=== PATIENT | female | born 1975 | race African-American/Black ===

== ENCOUNTER 2019-01-19 06:00 | Outpatient (RCR) | payer MEDICARE, SELFPAY | END 2019-02-18 00:01 | LOC: SPT 06:00 | PROVIDERS: Family Provider Nurse Practitioner Family; Visit Provider Specialist | DX: M25.562 Pain in left knee (principal) | CPT/HCPCS: 97110 ×3 ==

== ENCOUNTER → 2019-02-18 | Outpatient (CLI) | payer SELFPAY | PROVIDERS: Family Provider Nurse Practitioner Family; Visit Provider Nurse Practitioner Family | DX: M54.31 Sciatica, right side (principal); M25.551 Pain in right hip | CPT/HCPCS: 73502 ==

== ENCOUNTER 2019-02-19 11:19 | Outpatient (RCR) | payer MEDICARE, SELFPAY | END 2019-03-21 23:59 | disposition home or self-care (01) | LOC: SPT 11:19 | PROVIDERS: Family Provider Nurse Practitioner Family; PCP Family Medicine; Visit Provider Specialist | DX: M25.562 Pain in left knee (principal); R26.89 Other abnormalities of gait and mobility | CPT/HCPCS: 97110 ==

== ENCOUNTER → 2019-03-27 10:56 | Outpatient (BNVA) | payer MEDICARE, SELFPAY | PROVIDERS: Family Provider Nurse Practitioner Family; PCP Family Medicine; Visit Provider Nurse Practitioner Psychiatric/Mental Health | DX: F25.0 Schizoaffective disorder, bipolar type (principal) | CPT/HCPCS: 99213 ==

== ENCOUNTER → 2019-05-26 08:17 | Outpatient (BNVA) | payer MEDICARE, MEDICAID, SELFPAY | PROVIDERS: Family Provider Nurse Practitioner Family; PCP Family Medicine; Visit Provider Nurse Practitioner Psychiatric/Mental Health | DX: F25.0 Schizoaffective disorder, bipolar type (principal) | CPT/HCPCS: 99213 ==

== ENCOUNTER → 2019-07-07 07:58 | Outpatient (BNVA) | payer MEDICARE, MEDICAID, SELFPAY | PROVIDERS: Family Provider Nurse Practitioner Family; PCP Family Medicine; Visit Provider Nurse Practitioner Psychiatric/Mental Health | DX: F25.0 Schizoaffective disorder, bipolar type (principal) | CPT/HCPCS: 99212 ==

== ENCOUNTER 2019-09-26 06:46 | Emergency (ER) | payer MEDICARE, MEDICAID, SELFPAY ==
[2019-09-26 06:52] VITALS: BP 135/95; PULSE 93; RESP 18; TEMP 36.7; O2SAT 99; BMI 41.5
--- NOTE | 2019-09-26 06:54 | ED_ITS ---
HPI - URI/Sore Throat General: Chief Complaint: General Medical Stated Complaint: COUGHING UP FLUID, CAN'T SLEEP Time Seen by Provider: 09/26/19 06:50 Source: patient Mode of arrival: ambulatory Limitations: no limitations History of Present Illness: HPI Narrative: Patient is a 44-year-old female presents to ED today with complaints of a productive cough that she has had over the past 5 to 6 days. Patient tells me the cough seems to keep her up at night however patient also tells me she has been drinking lots of water to try to help break up the phlegm so often is awaking to urinate. Patient is not having any pain in her chest. She does not complain of any shortness of breath or difficulty breathing. She has not had any fevers. She reports her throat is a little sore from coughing. She does not have any sinus pain, rhinorrhea, congestion, ear pain. She has not had any sick contacts or exposure to someone with confirmed or presumed COVID. Patient tells me she has a history of asthma that she uses a Pro-air inhaler for. MD elicited complaint: cough Onset (ago): day(s) Description of mucous: clear Able to tolerate fluids by mouth: Yes Exacerbating factors: nothing Relieving factors: nothing Associated symptoms: Deny abdominal pain, chills, chest pain, diarrhea, ear or mastoid pain, fever(s), headache(s), nasal congestion, nausea or vomiting Review of Systems Const: Denies: fever(s), chills, body aches, fatigue or malaise Eyes: Denies: change in vision or blurry vision ENMT: Reports: throat pain; Denies: uvular edema, enlarged tonsils, ear or mastoid pain, nasal discharge or nasal congestion Card: Denies: chest pain, palpitations, edema, lightheadedness, syncope, pre- syncope, dyspnea on exertion or orthopnea Resp: Reports: productive cough and chest congestion; Denies: dyspnea, wheezing or hemoptysis GI: Denies: abdominal pain, nausea, vomiting or diarrhea Musc: Denies: neck pain or back pain Skin/Breast: Denies: rash Neuro: Denies: headache(s) [facility] ED PFSH: Medical History (Updated 09/26/19 @ 08:42 by TASIA Christianson) Schizoaffective disorder, bipolar type Social History (Updated 03/27/19 @ 11:16 by Hellen Robertson LPN) Smoking and tobacco status: current every day smoker cigarettes Years cigarettes smoked: 30 Quit status (tobacco): considering quitting Second hand smoke exposure: Yes Physical Exam Const: COMMON NORMALS: no acute distress, patient oriented x3, no limitations and alert NUTRITIONAL APPEARANCE: obese HENMT: COMMON NORMALS: normocephalic, atraumatic, hearing grossly normal bilaterally, external ears normal, EAC's normal, TM's normal bilaterally, Normal external nose present, Normal nasal mucous membranes and turbinates present, m oist oral mucous membranes and oropharynx normal HEAD & SCALP: normal to inspection, normocephalic and atraumatic FACE & SINUS: normal facial exam and sinuses nontender NOSE: Normal external nose present and Normal nasal mucous membranes and turbinates present EXTERNAL EAR: Yes external ears normal EXTERNAL AUDITORY CANAL: EAC's normal TYMPANIC MEMBRANE: TM's normal bilaterally MOUTH: Normal oral and palatal mucosa present, lip normal and tongue normal THROAT: posterior oropharynx normal, tonsils normal and uvula midline; no uvular edema Eye: GENERAL EYE: appearance normal, both eyes and all related structures Neck/C-Spine: COMMON NORMALS: full ROM, no lymphadenopathy and no meningeal signs Chest: COMMONS NORMALS: normal inspection of the chest and normal palpation of entire chest wall Resp: COMMON NORMALS: normal respiratory effort and clear to auscultation bilaterally AUSCULTATION: clear to auscultation bilaterally Cardio: COMMON NORMALS: regular rate and regular rhythm RATE: regular rate RHYTHM: regular rhythm Neuro: COMMON NORMALS: patient oriented x3 SENSORIUM/ORIENTATION: Yes alert MENINGEAL SIGNS: Yes no meningeal signs Skin: COMMON NORMALS: no rashes or lesions noted GENERAL SKIN EXAM: no rashes or lesions noted Course Vital Signs: Vital signs: Vital Signs Temperature 98.0 F 09/26/19 06:52 Pulse Rate 84 09/26/19 08:50 Respiratory Rate 18 09/26/19 08:50 Blood Pressure 129/84 09/26/19 08:50 Pulse Oximetry 100 09/26/19 08:50 MDM - URI/Sore Throat MDM Narrative: Medical decision making narrative: Initial CXR interpreted by myself and Dr. Cotter-questionable effusion so lateral decub was performed. I do not see any effusion at this time. Will treat for possible early pneumonia and recommend followup with PCP. Labs overall look okay-she has some chronic microcytic microchromic anemia present. Vitals are stable. Lab Data: Labs: Lab Results 09/26/19 09/26/19 Range/Units 08:01 08:01 WBC 14.3 H (4.0-10.0) 10^3/ uL RBC 5.29 (4.1-5.3) 10^6/u L Hgb 10.4 L (11.5-15.3) g/dL Hct 35.8 L (37.0-47.0) % MCV 67.7 L (81-99) fL MCH 19.7 L (28.0-34.0) pg MCHC 29.1 L (30.0-36.0) g/dL RDW 16.7 H (12.1-15.1) % Plt Count 369 (130-400) 10^3/c mm MPV 11.2 H (7.4-10.4) fL Neut % (Auto) 66.8 % Lymph % (Auto) 24.1 % [place] % (Auto) 7.5 % Eos % (Auto) 1.0 % Baso % (Auto) 0.3 % Neut # (Auto) 9.53 H (1.8-7.7) 10^3/u L Lymph # (Auto) 3.5 (0.8-4.8) 10^3/u L [place] # (Auto) 1.1 H (0.2-0.9) 10^3/u L Eos # (Auto) 0.2 (0.0-0.8) 10^3/u L Baso # (Auto) 0.0 (0.0-0.1) 10^3/u L Nucleated RBC % (a uto) 0 % Nucleated RBCs # 0.0 /100WBC Sodium 138 (136-145) mmol/L Potassium 3.6 (3.5-5.1) mmol/L Chloride 103 (98-107) mmol/L Carbon Dioxide 23 (22-29) mmol/L Anion Gap 15.6 (5-19) BUN 4 L (6-20) mg/dL Creatinine 0.8 (0.5-0.9) mg/dL GFR Calculation 78.3 L (90-130) mL/min Glucose 102 (65-115) mg/dL Calculated Osmolal ity 282 L (285-295) mOsm/k g Calcium 9.0 (8.5-10.5) mg/dL Total Bilirubin 0.3 (0.15-1.2) mg/dL AST 13 (0-32) U/L ALT 12 (0-33) U/L Alkaline Phosphata se 73 (35-105) IU/L Total Protein 8.8 H (6.6-8.7) g/dL Albumin 4.2 (3.5-5.2) g/dL Globulin 4.6 (1.3-4.6) g/dL Imaging Data^: CXR: Radiologist's impression: [place] [address] XRay Report Signed Patient: Vijay Galindo Unit #: [id number] : 1975 Age/Sex: 44 / F ADM Date: 09/26/19 Loc: ER Room/Bed: Attending Dr: Ordering Provider/Ordering MD: Katelynn Encarnacion Date of Service: 09/26/19 Procedure(s): XR chest 1V portable [id number] Accession Number(s): [id number] Report Number: [id number] WS: [id number] PORTABLE CHEST HISTORY: lateral decub; possible R effusion COMPARISON: Study earlier the same day. Partial obscuration of the RIGHT lower lobe continues and may be due to overlying soft tissue. There is no significant effusion. No pleural effusion or pneumothorax. Cardiac size: Normal. Mediastinum/Aorta: Normal mediastinum. No osseous abnormality seen. XR/XR chest 1V portable [id number] IMPRESSION: No significant layering RIGHT pleural effusion. Dictated By: Janene Chirinos DO Signed By: Janene Chirinos DO Signed Date/Time: 09/26/19817 DD/ 6 portable CXR: Radiologist's impression: [place] [id number] XRay Report Signed Patient: Vijay GalindoUnit #: [id number] : 1975Acct#:[id number] Age/Sex: 44 / FADM Date: 09/26/19 Loc: ERRoom/Bed: Attending Dr: Ordering Provider/Ordering MD: Katelynn Encarnacion Date of Service: 09/26/19 Procedure(s): XR chest 1V portable [id number] Accession Number(s): [id number] Report Number: [id number] WS: [id number] PORTABLE CHEST HISTORY: chest pain COMPARISON: None available. Slight elevation of the RIGHT hemidiaphragm. There some very mild increased opacification at the RIGHT lung base which is probably due to overlying soft tissue or very mild pneumonitis. No pleural effusion or pneumothorax. Cardiac size: Normal. Mediastinum/Aorta: Normal mediastinum. No osseous abnormality seen. XR/XR chest 1V portable [id number] IMPRESSION: Mild elevation of the RIGHT hemidiaphragm with minimal increased density at the RIGHT lung base. Early pneumonia or pneumonitis. Dictated By:Janene Chirinos DO Signed By:Janene Chirinos DOSigned Date/Time:09/26/19818 DD/ 8 Discharge Plan Discharge Patient Disposition: Home Clinical Impression: Pneumonia Qualifiers: Pneumonia type: due to unspecified organism Laterality: right Lung location: lower lobe of lung Qualified Code(s): J18.9 - Pneumonia, unspecified organism Condition: Stable Prescriptions: New doxycycline monohydrate 100 mg capsule 100 mg PO Q12H 10 Days Qty: 20 RF: 0 No Action hydrocodone-acetaminophen 5-325 mg tablet 1 tab PO TID PRN (Reason: pain) RF: 0 metformin 500 mg tablet 500 mg PO DAILY RF: 0 olanzapine 5 mg tablet 5 mg PO BID Qty: 60 RF: 2 trazodone 100 mg tablet 200 mg PO DAILY PRN (Reason: insomnia) Qty: 60 RF: 2 buspirone 10 mg tablet 10 mg PO BID Qty: 60 RF: 2 aspirin 81 mg tablet,delayed release (DR/EC) 81 mg PO DAILY RF: 0 Discharge Orders: Discharge Order (Routine); Ordered 09/26/19 Ordered By: Katelynn Encarnacion Referrals: Meka Wayne DO [Primary Care Provider] - Patient Instructions: Pneumonia (ED) Activity Restrictions/Additional Instructions: Please follow-up with your primary care provider in 3 to 5 days for reevaluation. You may return to the emergency department for worsening cough, chest pain, shortness of breath, difficulty breathing, fevers, any other concerns you may have. Discharge Date/Time: 09/26/19 08:51 Coding Level of Care Code ED Acute Care Surgeon for Chg Fwd Exam Comprehensive
--- NOTE | 2019-09-26 07:05 | XR_ITS ---
WS: [id number] PORTABLE CHEST HISTORY: chest pain COMPARISON: None available. Slight elevation of the RIGHT hemidiaphragm. There some very mild increased opacification at the RIGH T lung base which is probably due to overlying soft tissue or very mild pneumonitis. No pleural effus ion or pneumothorax. Cardiac size: Normal. Mediastinum/Aorta: Normal mediastinum. No osseous abnormality seen. XR/XR chest 1V portable [id number] IMPRESSION: Mild elevation of the RIGHT hemidiaphragm with minimal increased density at the RIGHT lung base. Early pneumonia or pneumonitis.
--- NOTE | 2019-09-26 07:37 | XR_ITS ---
WS: [id number] PORTABLE CHEST HISTORY: lateral decub; possible R effusion COMPARISON: Study earlier the same day. Partial obscuration of the RIGHT lower lobe continues and may be due to overlying soft tissue. There is no significant effusion. No pleural effusion or pneumothorax. Cardiac size: Normal. Mediastinum/Aorta: Normal mediastinum. No osseous abnormality seen. XR/XR chest 1V portable [id number] IMPRESSION: No significant layering RIGHT pleural effusion.
[2019-09-26 08:07] LABS: Basophils % 0.3 %; Eosinophils # 0.2 10^3/uL (0.0-0.8); Hematocrit 35.8 % (37.0-47.0); Hemoglobin 10.4 g/dL (11.5-15.3); Lymphocytes # 3.5 10^3/uL (0.8-4.8); Lymphocytes % 24.1 %; Mean Corpuscular HGB Conc 29.1 g/dL (30.0-36.0); Mean Corpuscular Hemoglobin 19.7 pg (28.0-34.0); Mean Corpuscular Volume 67.7 fL (81-99); Mean Platelet Volume 11.2 fL (7.4-10.4); Monocytes # 1.1 10^3/uL (0.2-0.9); Monocytes % 7.5 %; Neutrophils # 9.53 10^3/uL (1.8-7.7); Neutrophils % 66.8 %; Nucleated Red Blood Cells % 0 %; Platelet Count 369 10^3/cmm (130-400); Red Blood Count 5.29 10^6/uL (4.1-5.3); Red Cell Distribution Width 16.7 % (12.1-15.1); White Blood Count 14.3 10^3/uL (4.0-10.0)
[2019-09-26 08:39] LABS: Alanine Aminotransferase 12 U/L (0-33); Albumin Level 4.2 g/dL (3.5-5.2); Alkaline Phosphatase 73 IU/L (35-105); Anion Gap 15.6 (5-19); Aspartate Amino Transferase 13 U/L (0-32); Blood Urea Nitrogen 4 mg/dL (6-20); Carbon Dioxide 23 mmol/L (22-29); Chloride 103 mmol/L (98-107); Globulin 4.6 g/dL (1.3-4.6); Glomerular Filtration Rate 78.3 mL/min (90-130); Glucose 102 mg/dL (65-115); Osmolality Calculated 282 mOsm/kg (285-295); Potassium 3.6 mmol/L (3.5-5.1); Sodium 138 mmol/L (136-145); Total Bilirubin 0.3 mg/dL (0.15-1.2); Total Protein 8.8 g/dL (6.6-8.7)
[2019-09-26 08:47] VITALS: BP 129/84; PULSE 84; RESP 20; O2SAT 100
[2019-09-26 08:50] VITALS: BP 129/84; PULSE 84; RESP 18; O2SAT 100
== END 2019-09-26 08:51 | disposition home or self-care (01) ==
PROVIDERS: Emergency Provider Physician Assistant; PCP Family Medicine
DX: J18.9 Pneumonia, unspecified organism (principal); Z79.82 Long term (current) use of aspirin; F17.210 Nicotine dependence, cigarettes, uncomplicated
CPT/HCPCS: 12345; 71045; 80053; 85025; 99281; 99283

== ENCOUNTER → 2019-09-29 09:04 | Outpatient (BNVA) | payer MEDICARE, SELFPAY | PROVIDERS: PCP Family Medicine; Visit Provider Nurse Practitioner Psychiatric/Mental Health | DX: F25.0 Schizoaffective disorder, bipolar type (principal) | CPT/HCPCS: 99212 ==

== ENCOUNTER → 2019-12-22 07:44 | Outpatient (BNVA) | payer MEDICARE, SELFPAY | PROVIDERS: PCP Family Medicine; Visit Provider Nurse Practitioner Psychiatric/Mental Health | DX: F25.0 Schizoaffective disorder, bipolar type (principal) | CPT/HCPCS: 99212 ==

== ENCOUNTER → 2020-03-22 09:31 | Outpatient (BNVA) | payer MEDICARE, SELFPAY | PROVIDERS: PCP Family Medicine; Visit Provider Nurse Practitioner Psychiatric/Mental Health | DX: F25.0 Schizoaffective disorder, bipolar type (principal); Z79.899 Other long term (current) drug therapy | CPT/HCPCS: 99213 ==

== ENCOUNTER 2020-03-24 05:47 | Emergency (ER) | payer MEDICARE, MEDICAID, SELFPAY ==
[2020-03-24] VITALS (7 sets, daily range): BP systolic 117–145; BP diastolic 75–101; PULSE 73–100; RESP 14–25; TEMP 36.6; O2SAT 94–100; BMI 43.2
--- NOTE | 2020-03-24 05:48 | ECG_ITS ---
[facility] Test Date: 2020-03-24 Pat Name: Vijay Galindo Department: Room: Gender: Female Project Coach: : 1975 Requested By: Veronika Rico Order Number: [id number] Linda MD: Michael Rodríguez M.D. Measurements Intervals [place] Rate: 79 P: 40 IL: 109 QRS: 30 QRSD: 92 T: 18 QT: 373 QTc: 428 Interpretive Statements SINUS RHYTHM WITH SHORT IL INTERVAL WITH OCCASIONAL SUPRAVENTRICULAR PREMATURE COMPLEXES No previous ECG available for comparison Electronically Signed On 03-24-2020 20:04:21 SENIOR TECHNICAL EDITOR by Michael Rodríguez M.D. [email or web address] [email or web address]/store/[id number]
--- NOTE | 2020-03-24 05:48 | XR_ITS ---
WS: [id number] PORTABLE CHEST HISTORY: Left-sided chest pain. COMPARISON: 09/26/2019 Decreased lung volumes. Quality is limited by body habitus and positioning. No abnormality identified . No pleural effusion or pneumothorax. Cardiac size: Normal. Mediastinum/Aorta: Normal mediastinum. No osseous abnormality seen. XR/XR chest 1V portable [id number] IMPRESSION: Unremarkable portable chest.
[2020-03-24 06:18] LABS: Basophils # 0.1 10^3/uL (0.0-0.1); Basophils % 0.4 %; Eosinophils # 0.3 10^3/uL (0.0-0.8); Eosinophils % 2.3 %; Hematocrit 31.3 % (37.0-47.0); Hemoglobin 9.1 g/dL (11.5-15.3); Lymphocytes # 3.3 10^3/uL (0.8-4.8); Lymphocytes % 28.3 %; Mean Corpuscular HGB Conc 29.1 g/dL (30.0-36.0); Mean Corpuscular Hemoglobin 20.1 pg (28.0-34.0); Mean Corpuscular Volume 69.2 fL (81-99); Mean Platelet Volume 11.1 fL (7.4-10.4); Neutrophils # 6.87 10^3/uL (1.8-7.7); Neutrophils % 59.7 %; Nucleated Red Blood Cells % 0 %; Platelet Count 336 10^3/cmm (130-400); Red Blood Count 4.52 10^6/uL (4.1-5.3); Red Cell Distribution Width 16.9 % (12.1-15.1); White Blood Count 11.5 10^3/uL (4.0-10.0)
--- NOTE | 2020-03-24 06:26 | W.ED.CHESTPA ---
HPI - Chest Pain General: Chief Complaint: Chest Pain Stated Complaint: CP Time Seen by Provider: 03/24/20 06:03 History of Present Illness: HPI narrative: The patient is a 44-year-old female with past medical history of diabetes who comes to the ER complaining of left-sided chest pain at home. She has not had any chest pain in the ER. She says last night she was cleaning her home around 9 PM and went to bed shortly after. When she laid down she started having pain under her left breast which was worse with movement and ached her all night. At about around 5 AM she called the ER and recommended coming in for evaluation. She says as soon as she hung up the phone her pain resolved and she has not had any since. She has anterior chest wall tenderness over the area where she says her pain was. No prior known coronary artery disease Pain location: left chest Pain radiation: none Quality: sharp Exacerbating factors: movement Associated symptoms: Reports no associated symptoms; Deny abdominal pain, dyspnea or palpitations Review of Systems General: Reports: 10 or more systems reviewed and unremarkable except in HPI and below Const: Denies: fatigue Eyes: Denies: change in vision, blurry vision or eye redness ENMT: Denies: throat pain, swelling of lips/tongue, ear or mastoid pain or nasal congestion Card: Denies: chest pain, palpitations, irregular heart rhythm, edema, dyspnea on exertion or orthopnea Resp: Denies: dyspnea, productive cough or non-productive cough GI: Denies: abdominal pain, diarrhea or GI cramping : Denies: flank pain, difficulty voiding, urinary frequency or urinary urgency Musc: Denies: neck pain, back pain, extremity pain, joint pain, joint redness, limited range of motion or muscle weakness Skin/Breast: Denies: rash, pruritus, erythema, skin pain or skin tenderness Neuro: Denies: headache(s), numbness in extremities, weakness in extremities, sensory changes, difficulty walking, dizziness, confusion or Slurred speech present Psych: Denies: anxiety or depression Endo: Denies: polyuria All/Imm: Denies: urticaria, throat swelling or tongue swelling PFSH ED PFSH: Medical History (Updated 03/24/20 @ 08:15 by Chris Robertson MD) Schizoaffective disorder, bipolar type Social History (Updated 02/06/20 @ 11:16 by KASSY Bailon Smoking and tobacco status: current every day smoker cigarettes Years cigarettes smoked: 30 Quit status (tobacco): considering quitting Second hand smoke exposure: Yes Female Reproductive History: Date of last menstrual period: 09/02/19 Physical Exam Const: COMMON NORMALS: no acute distress, average body habitus, patient oriented x3, no limitations, healthy appearing, alert and well nourished GENERAL APPEARANCE: cooperative, comfortable, well kempt and well developed NUTRITIONAL APPEARANCE: obese ORIENTATION/CONSCIOUSNESS: Yes awake, Yes oriented to person, Yes oriented to place and Yes oriented to time HENMT: COMMON NORMALS: normocephalic, external ears normal and Normal external nose present HEAD & SCALP: normal to inspection and normocephalic NOSE: Normal external nose present EXTERNAL EAR: Yes external ears normal MOUTH: Normal oral and palatal mucosa present THROAT: posterior oropharynx normal Eye: COMMON NORMALS: Equal, round and reactive pupils present and EOMs intact bilaterally GENERAL EYE: appearance normal, both eyes and all related structures PUPIL: Yes Equal, round and reactive pupils present Neck/C-Spine: COMMON NORMALS: full ROM, no lymphadenopathy, no meningeal signs and no JVD GENERAL: Yes normal visual inspection Lymph: LYMPHATIC: no lymphadenopathy noted Chest: COMMONS NORMALS: normal inspection of the chest CHEST: Yes other (Tenderness to left chest wall which reproduces her chief complaint. ) Resp: COMMON NORMALS: normal respiratory effort, No retractions, No use of accessory muscles, clear to auscultation bilaterally and percussion normal EFFORT & INSPECTION: Yes able to speak in complete sentences AUSCULTATION: clear to auscultation bilaterally PERCUSSION: percussion normal Cardio: COMMON NORMALS: no JVD, regular rate, regular rhythm, S1 normal heart sound present, S2 normal heart sound present and Peripheral pulses 2+ throughout RATE: regular rate RHYTHM: regular rhythm HEART SOUNDS: S1 normal heart sound present and S2 normal heart sound present PERIPHERAL PULSES: Peripheral pulses 2+ throughout GI: COMMON NORMALS: Normal to inspection, nondistended, normoactive bowel sounds present, Soft to palpation, non-tender and no masses INSPECTION: Yes normal to inspection PALPATION: Yes Soft to palpation : COMMON NORMALS: Yes no CVA tenderness BLADDER/KIDNEY EXAM: Yes no CVA tenderness Back/Pelvis: COMMON NORMALS: no CVA tenderness, thoracic and lumbar spine normal to inspection, no thoracic nor lumbar tenderness and thoraco-lumbar ROM normal Extremity: COMMON NORMALS: normal to inspection, full ROM, capillary refill normal, no joint enlargement and no pedal edema GENERAL: Yes normal exam except as noted Neuro: COMMON NORMALS: patient oriented x3, CN's II-XII intact bilaterally, moves all extremities, no focal motor deficits, no sensory deficits noted and gait normal SENSORIUM/ORIENTATION: Yes alert, Yes oriented to person, Yes oriented to place and Yes oriented to time MENINGEAL SIGNS: Yes no meningeal signs Psych: COMMON NORMALS: mental status grossly normal, Normal thought process present, cooperative, normal affect and speech normal APPEARANCE: Yes well kempt ATTITUDE: Yes calm SPEECH: Yes normal speech THOUGHT PROCESS: Normal thought process present Skin: COMMON NORMALS: no rashes or lesions noted GENERAL SKIN EXAM: no rashes or lesions noted Course Vital Signs: Vital signs: Vital Signs Temperature 97.9 F 03/24/20 05:51 Pulse Rate 73 03/24/20 08:09 Respiratory Rate 25 H 03/24/20 08:09 Blood Pressure 118/78 03/24/20 08:09 Pulse Oximetry 95 03/24/20 08:09 MDM - Chest Pain MDM Narrative: Medical decision making narrative: Patient comes in with atypical chest pain likely from cleaning her house yesterday. Cardiac work-up is negative. Normal troponin and EKG. D-dimer was elevated. CT angiogram normal. Stable for outpatient follow-up Lab Data: Labs: Lab Results 03/24/20 03/24/20 03/24/20 Range/Units 05:56 05:56 05:56 WBC 11.5 H (4.0-10.0) 10^3/ uL RBC 4.52 (4.1-5.3) 10^6/u L Hgb 9.1 L (11.5-15.3) g/dL Hct 31.3 L (37.0-47.0) % MCV 69.2 L (81-99) fL MCH 20.1 L (28.0-34.0) pg MCHC 29.1 L (30.0-36.0) g/dL RDW 16.9 H (12.1-15.1) % Plt Count 336 (130-400) 10^3/c mm MPV 11.1 H (7.4-10.4) fL Neut % (Auto) 59.7 % Lymph % (Auto) 28.3 % [place] % (Auto) 9.0 % Eos % (Auto) 2.3 % Baso % (Auto) 0.4 % Neut # (Auto) 6.87 (1.8-7.7) 10^3/u L Lymph # (Auto) 3.3 (0.8-4.8) 10^3/u L [place] # (Auto) 1.0 H (0.2-0.9) 10^3/u L Eos # (Auto) 0.3 (0.0-0.8) 10^3/u L Baso # (Auto) 0.1 (0.0-0.1) 10^3/u L Nucleated RBC % (a uto) 0 % Nucleated RBCs # 0.0 /100WBC D-Dimer (0-0.59) ug/mIFE U Sodium 138 (136-145) mmol/L Potassium 4.2 (3.5-5.1) mmol/L Chloride 104 (98-107) mmol/L Carbon Dioxide 27 (22-29) mmol/L Anion Gap 11.2 (5-19) BUN 6 (6-20) mg/dL Creatinine 0.7 (0.5-0.9) mg/dL GFR Calculation 91.3 (90-130) mL/min Glucose 101 (65-115) mg/dL Calculated Osmolal ity 284 L (285-295) mOsm/k g Calcium 8.4 L (8.5-10.5) mg/dL Total Bilirubin 0.2 (0.15-1.2) mg/dL AST 12 (0-32) U/L ALT 10 (0-33) U/L Alkaline Phosphata se 88 (35-105) IU/L Troponin T Baselin e 6 (0-10) ng/L Total Protein 6.8 (6.6-8.7) g/dL Albumin 3.4 L (3.5-5.2) g/dL Globulin 3.4 (1.3-4.6) g/dL 03/24/20 Range/Units 05:56 WBC (4.0-10.0) 10^3/ uL RBC (4.1-5.3) 10^6/u L Hgb (11.5-15.3) g/dL Hct (37.0-47.0) % MCV (81-99) fL MCH (28.0-34.0) pg MCHC (30.0-36.0) g/dL RDW (12.1-15.1) % Plt Count (130-400) 10^3/c mm MPV (7.4-10.4) fL Neut % (Auto) % Lymph % (Auto) % [place] % (Auto) % Eos % (Auto) % Baso % (Auto) % Neut # (Auto) (1.8-7.7) 10^3/u L Lymph # (Auto) (0.8-4.8) 10^3/u L [place] # (Auto) (0.2-0.9) 10^3/u L Eos # (Auto) (0.0-0.8) 10^3/u L Baso # (Auto) (0.0-0.1) 10^3/u L Nucleated RBC % (a uto) % Nucleated RBCs # /100WBC D-Dimer 1.26 H (0-0.59) ug/mIFE U Sodium (136-145) mmol/L Potassium (3.5-5.1) mmol/L Chloride (98-107) mmol/L Carbon Dioxide (22-29) mmol/L Anion Gap (5-19) BUN (6-20) mg/dL Creatinine (0.5-0.9) mg/dL GFR Calculation (90-130) mL/min Glucose (65-115) mg/dL Calculated Osmolal ity (285-295) mOsm/k g Calcium (8.5-10.5) mg/dL Total Bilirubin (0.15-1.2) mg/dL AST (0-32) U/L ALT (0-33) U/L Alkaline Phosphata se (35-105) IU/L Troponin T Baselin e (0-10) ng/L Total Protein (6.6-8.7) g/dL Albumin (3.5-5.2) g/dL Globulin (1.3-4.6) g/dL Discharge Plan Discharge Patient Disposition: Home Clinical Impression: Atypical chest pain Condition: Stable Prescriptions: No Action hydrocodone-acetaminophen 5-325 mg tablet 1 tab PO TID PRN (Reason: pain) RF: 0 metformin 500 mg tablet 500 mg PO DAILY RF: 0 aspirin 81 mg tablet,delayed release (DR/EC) 81 mg PO DAILY RF: 0 trazodone 100 mg tablet 200 mg PO DAILY PRN (Reason: insomnia) Qty: 60 RF: 2 olanzapine 5 mg tablet 5 mg PO BID Qty: 60 RF: 2 buspirone 10 mg tablet 10 mg PO BID Qty: 60 RF: 2 Discharge Orders: Discharge ED (Routine); Ordered 03/24/20 Ordered By: Chris Robertson Referrals: Meka Wayne DO [Primary Care Provider] - Discharge Diet: Advance as tolerated Discharge Activity: Resume usual activity Patient Instructions: Chest Pain - Noncardiac Activity Restrictions/Additional Instructions: You have chest pain which is likely the muscles and bones causing this in your chest wall. Please take Tylenol for your pain and return to the ER with worsening symptoms otherwise follow-up with your primary care physician in a few days. Coding Level of Care Code ED Commercial Lines Assistant for Bruce Fwd Exam Comprehensive
[2020-03-24 06:40] LABS: Alanine Aminotransferase 10 U/L (0-33); Albumin Level 3.4 g/dL (3.5-5.2); Alkaline Phosphatase 88 IU/L (35-105); Anion Gap 11.2 (5-19); Aspartate Amino Transferase 12 U/L (0-32); Blood Urea Nitrogen 6 mg/dL (6-20); Calcium 8.4 mg/dL (8.5-10.5); Carbon Dioxide 27 mmol/L (22-29); Chloride 104 mmol/L (98-107); Globulin 3.4 g/dL (1.3-4.6); Glomerular Filtration Rate 91.3 mL/min (90-130); Glucose 101 mg/dL (65-115); Osmolality Calculated 284 mOsm/kg (285-295); Potassium 4.2 mmol/L (3.5-5.1); Sodium 138 mmol/L (136-145); Total Bilirubin 0.2 mg/dL (0.15-1.2); Total Protein 6.8 g/dL (6.6-8.7)
[2020-03-24 06:41] LABS: Troponin(5th) Baseline 6 ng/L (0-10)
[2020-03-24 07:29] LABS: D Dimer 1.26 ug/mIFEU (0-0.59)
--- NOTE | 2020-03-24 07:35 | CT_ITS ---
WS: [id number] CT CHEST ANGIOGRAPHY WITH REFORMATS HISTORY: r/o PE TECHNIQUE: Contiguous axial images are obtained through the chest during arterial injection of intrav enous contrast. Images are reconstructed to evaluate the pulmonary arteries. MIP imaging also reviewe d. All CT scans at [facility] use at least one of these dose optimization techniques: aut omated exposure control; mA and/or kV adjustment per patient size (includes targeted exams where dose is matched to clinical indication); or iterative reconstruction. CONTRAST: Omnipaque 350; 95 mL IV. DLP: 483.19 mGy.cm COMPARISON: None available. Good opacification of the pulmonary arteries. No filling defects or pulmonary emboli. Pulmonary arter y is normal size. Normal aorta. No pneumonia. Normal vasculature. No pleural or pericardial effusions . There is increase fluid in the pericardial recess surrounding the aorta. No mediastinal or hilar ad enopathy. Normal soft tissues of the chest. Upper abdomen is negative. Mild thoracic spondylosis. Numerous heal ed rib fractures in the RIGHT thorax. CT/CT angio chest PE protcl [id number] IMPRESSION: 1. No pulmonary embolism. 2. No pneumonia. 3. No adenopathy.
--- NOTE | 2020-03-24 07:45 | PC.NURSE ---
Pt gone to radiology for CT.
--- NOTE | 2020-03-24 07:48 | ECG_ITS ---
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 Measurements Intervals [place] Rate: 68 P: 19 MD: 112 QRS: 26 QRSD: 98 T: 11 QT: 398 QTc: 424 Interpretive Statements SINUS RHYTHM WITH SHORT MD INTERVAL Compared to ECG 03/24/2020 05:58:58 No significant changes Electronically Signed On 03-24-2020 20:18:18 MERINGUER by Michael Rodríguez M.D. [email or web address] medical [email or web address]/store/[id number]
[2020-03-24] MEDS: iohexol 350 mg/mL 100 mL Btl IV (07:55)
[2020-03-24 08:39] LABS: Troponin 5 2HR Delta 0 ABS# (0-10)
== END 2020-03-24 08:43 | disposition home or self-care (01) ==
PROVIDERS: Emergency Medicine; Emergency Provider Family Medicine; PCP Family Medicine
DX: R07.89 Other chest pain (principal); Z79.84 Long term (current) use of oral hypoglycemic drugs; Z79.82 Long term (current) use of aspirin; F17.210 Nicotine dependence, cigarettes, uncomplicated
CPT/HCPCS: 12345; 71045; 71275; 80053; 84484; 85025; 85378; 93005; 99283; 99284; Q9967

== ENCOUNTER 2020-03-28 04:46 | Emergency (ER) | payer MEDICARE, MEDICAID, SELFPAY ==
[2020-03-28 04:47] VITALS: BP 142/96; PULSE 75; RESP 16; TEMP 36.6; O2SAT 99; BMI 36.6
[2020-03-28 04:57] VITALS: BP 152/91; PULSE 68; RESP 16; O2SAT 98
--- NOTE | 2020-03-28 05:13 | ECG_ITS ---
[facility] Test Date: 2020-03-28 Pat Name: Vijay Galindo Department: Room: Gender: Female Chief Digital Media Officer: : 1975 Requested By: Tio Ramos Order Number: [id number] Linda MD: SUSANA PARSONS Measurements Intervals [place] Rate: 73 P: 13 MT: 118 QRS: 29 QRSD: 91 T: 15 QT: 379 QTc: 420 Interpretive Statements SINUS RHYTHM WITH SHORT MT INTERVAL Compared to ECG 03/24/2020 08:03:33 No significant changes Electronically Signed On 03-28-2020 21:17:54 CAR SALESMAN by SUSANA PARSONS [email or web address] [email or web address] health washing[facility] township.[email or web address]/store/[id number] [email or web address]
--- NOTE | 2020-03-28 05:30 | ED_ITS ---
HPI - Fall General: Chief Complaint: Fall Stated Complaint: Fall from last week Time Seen by Provider: 03/28/20 04:59 History of Present Illness: HPI Narrative: 44-year-old female who was evaluated last week after a fall. She states she had been cleaning house and may have fallen. She has had epigastric/left upper quadrant pain since that time. She took Tylenol without any improvement. She says sometimes it hurts if she takes a deep breath. She denies any shortness of breath, fever, vomiting, cough. MD complaint: fall Onset (ago): day(s) Fall from: standing Fall witnessed: no Place fall occurred: home Loss of consciousness: None Symptoms prior to fall: none Context: tripped/slipped Location of injury: chest and abdomen Severity: moderate Associated symptoms-after fall: Reports abdominal pain and chest pain; Denies confusion, difficulty walking, headache(s), neck pain or short of breath Review of Systems Card: Reports: chest pain Resp: Denies: dyspnea, productive cough or non-productive cough GI: Reports: abdominal pain Musc: Denies: neck pain Neuro: Denies: headache(s), difficulty walking or confusion PFS ED PFSH: Medical History (Updated 03/28/20 @ 06:01 by Tio Stanley DO) Schizoaffective disorder, bipolar type Social History (Updated 03/27/19 @ 11:16 by Hellen Robertson LPN) Smoking and tobacco status: current every day smoker cigarettes Years c igarettes smoked: 30 Quit status (tobacco): considering quitting Second hand smoke exposure: Yes Female Reproductive History: Date of last menstrual period: 09/02/19 Physical Exam Const: GENERAL APPEARANCE: well developed ORIENTATION/CONSCIOUSNESS: Yes oriented to person, Yes oriented to place and Yes oriented to time HENMT: COMMON NORMALS: normocephalic, external ears normal and Normal external nose present HEAD & SCALP: normocephalic FACE & SINUS: normal facial exam NOSE: Normal external nose present and No nasal discharge present EXTERNAL EAR: Yes external ears normal Eye: COMMON NORMALS: Equal, round and reactive pupils present, EOMs intact bilaterally and conjunctivae normal EYELID: eyelids normal CONJUNCTIVA: Yes conjunctivae normal PUPIL: Yes Equal, round and reactive pupils present Neck/C-Spine: GENERAL: No tracheal deviation Chest: COMMONS NORMALS: normal inspection of the chest CHEST: No tenderness Resp: COMMON NORMALS: clear to auscultation bilaterally EFFORT & INSPECTION: No tachypneic, No respiratory distress, No retractions, No uses accessory muscles and No tracheal deviation AUSCULTATION: clear to auscultation bilaterally, no rhonchi, no wheezes and lung sounds not diminished Cardio: COMMON NORMALS: regular rate and regular rhythm RATE: regular rate RHYTHM: regular rhythm HEART SOUNDS: no murmurs PERIPHERAL PULSES: radial pulses present GI: INSPECTION: No abdominal distension AUSCULTATION: No Hyperactive bowel sounds present and No Hypoactive bowel sounds present PALPATION: Yes T enderness to palpation present (GI) (epigastric) Details: LUQ, No Guarding due to palpation present (GI) and No Rigid due to palpation PERCUSSION: no dullness to percussion and no tympanic to percussion Neuro: SENSORIUM/ORIENTATION: Yes oriented to person, Yes oriented to place and Yes oriented to time Psych: COMMON NORMALS: mental status grossly normal Skin: COMMON NORMALS: no rashes or lesions noted GENERAL SKIN EXAM: no rashes or lesions noted Course Vital Signs: Vital signs: Vital Signs Temperature 97.9 F 03/28/20 04:47 Pulse Rate 68 03/28/20 04:57 Respiratory Rate 16 03/28/20 04:57 Blood Pressure 152/91 03/28/20 04:57 Pulse Oximetry 98 03/28/20 04:57 MDM - Fall MDM Narrative: Medical decision making narrative: 44-year-old female with epigastric/chest and left upper quadrant pain. She relates this to a fall she had last week while cleaning her house. She was evaluated at that time, troponin was negative, CTA was negative, performed because of an elevated D- dimer. Her hemoglobin is stable at 9.5. Her white blood cell count is 13. Other laboratory are pending. EKG shows a sinus rhythm with rate of 75, normal axis, no acute ST changes. Laboratory is stable from prior. Lipase is negative. She will be allowed discharge. Lab Data: Labs: Lab Results 03/28/20 03/28/20 03/28/20 Range/Units 05:43 05:43 05:43 WBC 13.0 H (4.0-10.0) 10^3/ uL RBC 4.82 (4.1-5.3) 10^6/u L Hgb 9.5 L (11.5-15.3) g/dL Hct 32.8 L (37.0-47.0) % MCV 68.0 L (81-99) fL MCH 19.7 L (28.0-34.0) pg MCHC 29.0 L (30.0-36.0) g/dL RDW 16.9 H (12.1-15.1) % Plt Count 369 (130-400) 10^3/c mm MPV 11.2 H (7.4-10.4) fL Neut % (Auto) 67.5 % Lymph % (Auto) 22.1 % [place] % (Auto) 9.0 % Eos % (Auto) 0.9 % Baso % (Auto) 0.3 % Neut # (Auto) 8.74 H (1.8-7.7) 10^3/u L Lymph # (Auto) 2.9 (0.8-4.8) 10^3/u L [place] # (Auto) 1.2 H (0.2-0.9) 10^3/u L Eos # (Auto) 0.1 (0.0-0.8) 10^3/u L Baso # (Auto) 0.0 (0.0-0.1) 10^3/u L Nucleated RBC % (a uto) 0 % Nucleated RBCs # 0.0 /100WBC D-Dimer 1.40 H (0-0.59) ug/mIFE U Sodium 138 (136-145) mmol/L Potassium 4.0 (3.5-5.1) mmol/L Chloride 103 (98-107) mmol/L Carbon Dioxide 24 (22-29) mmol/L Anion Gap 15.0 (5-19) BUN 4 L (6-20) mg/dL Creatinine 0.6 (0.5-0.9) mg/dL GFR Calculation 132.0 H (90-130) mL/min Glucose 90 (65-115) mg/dL Calculated Osmolal ity 282 L (285-295) mOsm/k g Calcium 8.8 (8.5-10.5) mg/dL Total Bilirubin 0.2 (0.15-1.2) mg/dL AST 12 (0-32) U/L ALT 9 (0-33) U/L Alkaline Phosphata se 87 (35-105) IU/L Troponin T Gen 5 n g/L (0-10) ng/L C-Reactive Protein 11.1 H (0.0-4.9) mg/L Total Protein 7.7 (6.6-8.7) g/dL Albumin 3.9 (3.5-5.2) g/dL Globulin 3.8 (1.3-4.6) g/dL Lipase 13 (13-60) U/L HCG, Qual (Negative) Urine Color (Yellow) Urine Appearance (CLEAR) Urine pH (5-7) Ur Specific Gravit y (1.005-1.030) Urine Protein (Negative) Urine Glucose (UA) (Normal) Urine Ketones (Negative) Urine Blood (Negative) Urine Nitrate (Negative) Urine Bilirubin (Negative) Urine Urobilinogen (Negative) mg/dL Ur Leukocyte Svitlana ase (Negative) 03/28/20 03/28/20 03/28/20 Range/Units 05:43 05:43 05:55 WBC (4.0-10.0) 10^3/ uL RBC (4.1-5.3) 10^6/u L Hgb (11.5-15.3) g/dL Hct (37.0-47.0) % MCV (81-99) fL MCH (28.0-34.0) pg MCHC (30.0-36.0) g/dL RDW (12.1-15.1) % Plt Count (130-400) 10^3/c mm MPV (7.4-10.4) fL Neut % (Auto) % Lymph % (Auto) % [place] % (Auto) % Eos % (Auto) % Baso % (Auto) % Neut # (Auto) (1.8-7.7) 10^3/u L Lymph # (Auto) (0.8-4.8) 10^3/u L [place] # (Auto) (0.2-0.9) 10^3/u L Eos # (Auto) (0.0-0.8) 10^3/u L Baso # (Auto) (0.0-0.1) 10^3/u L Nucleated RBC % (a uto) % Nucleated RBCs # /100WBC D-Dimer (0-0.59) ug/mIFE U Sodium (136-145) mmol/L Potassium (3.5-5.1) mmol/L Chloride (98-107) mmol/L Carbon Dioxide (22-29) mmol/L Anion Gap (5-19) BUN (6-20) mg/dL Creatinine (0.5-0.9) mg/dL GFR Calculation (90-130) mL/min Glucose (65-115) mg/dL Calculated Osmolal ity (285-295) mOsm/k g Calcium (8.5-10.5) mg/dL Total Bilirubin (0.15-1.2) mg/dL AST (0-32) U/L ALT (0-33) U/L Alkaline Phosphata se (35-105) IU/L Troponin T Gen 5 n g/L 6 (0-10) ng/L C-Reactive Protein (0.0-4.9) mg/L Total Protein (6.6-8.7) g/dL Albumin (3.5-5.2) g/dL Globulin (1.3-4.6) g/dL Lipase (13-60) U/L HCG, Qual Negative (Negative) Urine Color Yellow (Yellow) Urine Appearance Clear (CLEAR) Urine pH 6 (5-7) Ur Specific Gravit y 1.005 (1.005-1.030) Urine Protein Neg (Negative) Urine Glucose (UA) Norm (Normal) Urine Ketones 1+ H (Negative) Urine Blood Neg (Negative) Urine Nitrate Negative (Negative) Urine Bilirubin Neg (Negative) Urine Urobilinogen Norm (Negative) mg/dL Ur Leukocyte Svitlana ase Negative (Negative) Discharge Plan Discharge Patient Disposition: Home Clinical Impression: Chest wall muscle strain Qualifiers: Encounter type: initial encounter Qualified Code(s): S29.011A - Strain of muscle and tendon of front wall of thorax, initial encounter Condition: Stable Prescriptions: New Prevacid 30 mg capsule,delayed release(DR/EC) 30 mg PO DAILY Qty: 30 RF: 0 No Action hydrocodone-acetaminophen 5-325 mg tablet 1 tab PO TID PRN (Reason: pain) RF: 0 metformin 500 mg tablet 500 mg PO DAILY RF: 0 aspirin 81 mg tablet,delayed release (DR/EC) 81 mg PO DAILY RF: 0 trazodone 100 mg tablet 200 mg PO DAILY PRN (Reason: insomnia) Qty: 60 RF: 2 olanzapine 5 mg tablet 5 mg PO BID Qty: 60 RF: 2 buspirone 10 mg tablet 10 mg PO BID Qty: 60 RF: 2 Discharge Orders: Discharge ED (Routine); Ordered 03/28/20 Ordered By: Tio Stanley Referrals: Meka Wayne DO [Primary Care Provider] - 4-7 days Discharge Diet: Advance as tolerated Discharge Activity: Increase activity as tolerated Patient Instructions: Chest Pain (ED), Gastritis (ED) Activity Restrictions/Additional Instructions: Turn for fever greater than 100, worsening pain despite treatment, shortness of breath, vomiting liquids or medications, other concerning symptoms Coding Level of Care Code ED [employer] for Bruce Fwd Exam Comprehensive
[2020-03-28] MEDS: lidocaine 2% viscous 15 ML, aluminum-mag hydrox-simethicon 30 ML, sucralfate oral liq 1 GM PO (05:45)
[2020-03-28 05:51] LABS: Basophils % 0.3 %; Eosinophils # 0.1 10^3/uL (0.0-0.8); Eosinophils % 0.9 %; Hematocrit 32.8 % (37.0-47.0); Hemoglobin 9.5 g/dL (11.5-15.3); Lymphocytes # 2.9 10^3/uL (0.8-4.8); Lymphocytes % 22.1 %; Mean Corpuscular Hemoglobin 19.7 pg (28.0-34.0); Mean Platelet Volume 11.2 fL (7.4-10.4); Monocytes # 1.2 10^3/uL (0.2-0.9); Neutrophils # 8.74 10^3/uL (1.8-7.7); Neutrophils % 67.5 %; Nucleated Red Blood Cells % 0 %; Platelet Count 369 10^3/cmm (130-400); Red Blood Count 4.82 10^6/uL (4.1-5.3); Red Cell Distribution Width 16.9 % (12.1-15.1)
[2020-03-28 06:01] LABS: Add Urine Microscopic? NO
[2020-03-28 06:03] LABS: HCG, Serum Qual Negative (Negative)
[2020-03-28 06:04] LABS: Bilirubin Urine Neg (Negative); Blood Urine Neg (Negative); Glucose Urine UA Norm (Normal); Ketones Urine 1+ (Negative); Leukocyte Esterase Urine Negative (Negative); Nitrate Urine Negative (Negative); Protein Urine Neg (Negative); Specific Gravity, Urine 1.005 (1.005-1.030); Urine Appearance Clear (CLEAR); Urine Color Yellow (Yellow); Urobilinogen Urine Norm (Negative); pH Urine 6 (5-7)
[2020-03-28 06:08] LABS: Alanine Aminotransferase 9 U/L (0-33); Albumin Level 3.9 g/dL (3.5-5.2); Alkaline Phosphatase 87 IU/L (35-105); Aspartate Amino Transferase 12 U/L (0-32); Blood Urea Nitrogen 4 mg/dL (6-20); C Reactive Protein 11.1 mg/L (0.0-4.9); Calcium 8.8 mg/dL (8.5-10.5); Carbon Dioxide 24 mmol/L (22-29); Chloride 103 mmol/L (98-107); Globulin 3.8 g/dL (1.3-4.6); Glucose 90 mg/dL (65-115); Lipase 13 U/L (13-60); Osmolality Calculated 282 mOsm/kg (285-295); Sodium 138 mmol/L (136-145); Total Bilirubin 0.2 mg/dL (0.15-1.2); Total Protein 7.7 g/dL (6.6-8.7)
[2020-03-28 06:10] LABS: Troponin T (5th) Once 6 ng/L (0-10)
[2020-03-28 06:21] VITALS: BP 127/82; PULSE 73; RESP 16; O2SAT 100
== END 2020-03-28 06:25 | disposition home or self-care (01) ==
PROVIDERS: Emergency Provider Emergency Medicine; PCP Family Medicine
DX: S29.011A Strain of muscle and tendon of front wall of thorax, initial encounter (principal); Z79.84 Long term (current) use of oral hypoglycemic drugs; Z79.82 Long term (current) use of aspirin; F17.210 Nicotine dependence, cigarettes, uncomplicated; W19.XXXA Unspecified fall, initial encounter
CPT/HCPCS: 12345; 80053; 81003; 83690; 84484; 84703; 85025; 85378; 86140; 93005; 99282; 99283

== ENCOUNTER 2020-03-30 05:48 | Emergency (ER) | payer MEDICARE, MEDICAID, SELFPAY ==
[2020-03-30 05:49] VITALS: BP 141/84; PULSE 76; RESP 19; TEMP 36.7; O2SAT 100; BMI 44.6
[2020-03-30 05:58] VITALS: PULSE 77
[2020-03-30 06:00] VITALS: BP 141/84; PULSE 80; RESP 17; O2SAT 99
--- NOTE | 2020-03-30 06:09 | XRR_ITS ---
PROCEDURE INFORMATION: Exam: XR Left Hand Exam date and time: 03/30/2020 6:39 AM Age: 44 years old Clinical indication: Injury or trauma; Fall; Blunt trauma (contusions or hematomas); Wrist and hand; Left; Injury date: 03/24/20; Additional info: Numbness/recent fall TECHNIQUE: Imaging protocol: XR Left hand. Views: Frontal, lateral, and oblique views. COMPARISON: No relevant prior studies available. FINDINGS: Bones/joints: Normal. Soft tissues: Normal. XR/XR hand LT min 3V* [id number] IMPRESSION: No acute findings.
--- NOTE | 2020-03-30 06:09 | XRR_ITS ---
PROCEDURE INFORMATION: Exam: XR Left Wrist Exam date and time: 03/30/2020 6:39 AM Age: 44 years old Clinical indication: Injury or trauma; Fall; Blunt trauma (contusions or hematomas); Wrist and hand; Left; Injury date: 03/24/20; Additional info: Recent fall TECHNIQUE: Imaging protocol: XR Left wrist. Views: Frontal, lateral, and oblique views. COMPARISON: No relevant prior studies available. FINDINGS: Bones/joints: Normal. Soft tissues: Normal. XR/XR wrist LT min 3V* [id number] IMPRESSION: No acute findings.
--- NOTE | 2020-03-30 06:10 | W.ED.EXTPRO ---
HPI - Extremity Problem General: Chief complaint: Extremity Injury, Upper Stated complaint: HAND NUMBNESS Time Seen by Provider: 03/30/20 05:54 History of Present Illness: HPI Narrative: 44-year-old female presents via EMS with complaint of numbness on the back of her left hand. Complains of numbness from her wrist extending to her her knuckles just on the back of the left hand. She did fall a few days ago she was seen here previously for some discomfort to her ribs on the left side. She has no other pain she is not had any loss of strength in that hand. She is still able to records management manager things she has good flexion and extension at the wrist good intrinsic hand muscle strength. Sensation on the palmar surface of the hand is normal. She cannot recall any other injury to that hand or wrist. There are no discomfort and numbness or any other symptoms proximal to the wrist. MD Complaint: other (Numbness dorsum left hand) Onset (ago): hour(s) Pain Consistency: constant Location: left Quality: other (Numbness) Relieving factors: nothing Exacerbating factors: nothing Associated symptoms: Deny arthralgias, chest pain, fever(s), myalgias, rash or short of breath Review of Systems Const: Denies: fever(s) ENMT: Denies: throat pain, ear or mastoid pain, nasal discharge or nasal congestion Card: Denies: chest pain Resp: Denies: dyspnea, productive cough or non-productive cough GI: Denies: abdominal pain, nausea, vomiting, hematemesis, coffee ground emesis, diarrhea, constipation, bloating, hematochezia or melena : Denies: flank pain, difficulty voiding, dysuria, urinary frequency or urinary urgency Skin/Breast: Denies: rash PFSH ED PFSH: Medical History Schizoaffective disorder, bipolar type Social History Smoking and tobacco status: current every day smoker cigarettes Years cigarettes smoked: 30 Quit status (tobacco): considering quitting Second hand smoke exposure: Yes Female Reproductive History: Date of last menstrual period: 09/02/19 Physical Exam Const: COMMON NORMALS: no acute distress GENERAL APPEARANCE: cooperative and comfortable ORIENTATION/CONSCIOUSNESS: Yes awake, Yes oriented to person, Yes oriented to place and Yes oriented to time HENMT: COMMON NORMALS: normocephalic, atraumatic and hearing grossly normal bilaterally HEAD & SCALP: normocephalic and atraumatic Neck/C-Spine: COMMON NORMALS: no JVD Resp: COMMON NORMALS: normal respiratory effort, No retractions, No use of accessory muscles and clear to auscultation bilaterally AUSCULTATION: clear to auscultation bilaterally Cardio: COMMON NORMALS: no JVD, regular rate, regular rhythm and No murmurs present (Cardio) RATE: regular rate RHYTHM: regular rhythm GI: COMMON NORMALS: Soft to palpation and No hepatosplenomegaly present AUSCULTATION: Yes normoactive bowel sounds PALPATION: Yes Soft to palpation, No Tenderness to palpation present (GI), No Guarding due to palpation present (GI) and Yes No hepatosplenomegaly present Extremity: COMMON NORMALS: normal to inspection, capillary refill normal, no clubbing, cyanosis or edema, no calf tenderness and no pedal edema Neuro: SENSORIUM/ORIENTATION: Yes oriented to person, Yes oriented to place and Yes oriented to time Skin: COMMON NORMALS: no rashes or lesions noted GENERAL SKIN EXAM: no rashes or lesions noted Course Vital Signs: Vital signs: Vital Signs Temperature 98.0 F 03/30/20 05:49 Pulse Rate 78 03/30/20 08:08 Respiratory Rate 18 03/30/20 08:08 Blood Pressure 141/84 03/30/20 06:00 Pulse Oximetry 98 03/30/20 08:08 MDM - Extremity (Nontraumatic) MDM Narrative: Medical decision making narrative: Cussed findings patient this persist follow-up with primary care at this time can use some anti-inflammatories and ice as needed. Discharge Plan Discharge Patient Disposition: Home Clinical Impression: Left wrist sprain Condition: Stable Prescriptions: New diclofenac sodium 75 mg tablet,delayed release (DR/EC) 75 mg PO Q12H PRN (Reason: pain) Qty: 20 RF: 0 No Action hydrocodone-acetaminophen 5-325 mg tablet 1 tab PO TID PRN (Reason: pain) RF: 0 metformin 500 mg tablet 500 mg PO DAILY RF: 0 aspirin 81 mg tablet,delayed release (DR/EC) 81 mg PO DAILY RF: 0 trazodone 100 mg tablet 200 mg PO DAILY PRN (Reason: insomnia) Qty: 60 RF: 2 olanzapine 5 mg tablet 5 mg PO BID Qty: 60 RF: 2 buspirone 10 mg tablet 10 mg PO BID Qty: 60 RF: 2 Prevacid 30 mg capsule,delayed release(DR/EC) 30 mg PO DAILY Qty: 30 RF: 0 Discharge Orders: Discharge ED (Routine); Ordered 03/30/20 Ordered By: Mak Cotter Referrals: eMka Wayne DO [Primary Care Provider] - Activity Restrictions/Additional Instructions: Follow-up with Dr. Wayne if not improving. Coding Level of Care Code ED [employer] for Robertg Fwd Exam Comprehensive
[2020-03-30 08:00] VITALS: PULSE 78; RESP 18; O2SAT 98
[2020-03-30 08:08] VITALS: PULSE 78; RESP 18; O2SAT 98
== END 2020-03-30 08:08 | disposition home or self-care (01) ==
PROVIDERS: Emergency Provider Family Medicine; PCP Family Medicine
DX: S63.502A Unspecified sprain of left wrist, initial encounter (principal); W18.30XA Fall on same level, unspecified, initial encounter; Z79.82 Long term (current) use of aspirin; Z79.84 Long term (current) use of oral hypoglycemic drugs; F17.210 Nicotine dependence, cigarettes, uncomplicated
CPT/HCPCS: 12345; 73110; 73130; 99281; 99282

== ENCOUNTER 2020-04-01 04:21 | Emergency (ER) | payer MEDICARE, MEDICAID, SELFPAY ==
[2020-04-01 04:24] VITALS: BP 153/88; PULSE 75; RESP 18; TEMP 36.7; O2SAT 100; BMI 44.1
[2020-04-01 04:30] VITALS: PULSE 64
--- NOTE | 2020-04-01 06:42 | W.ED.EXTPRO ---
HPI - Extremity Problem General: Chief complaint: Extremity Injury, Lower Stated complaint: left wrist pain Time Seen by Provider: 04/01/20 04:24 History of Present Illness: HPI Narrative: 44-year-old black female presents complaining of wrist pain she refers most of discomfort to the dorsum of her left hand it extends from the distal metatarsals to the distal forearm. She indicates to an area about 2 to 3 inches proximal to the wrist. I did see her yesterday morning x-ray was done that was normal. She states that times now it will radiate into her fingertips and she will massage her wrist and her fingers but does not get any better. We gave her diclofenac yesterday we also set her up to see Ortho unfortunately due to weather she missed that appointment. She denies any other injury or fall. No previous injury or surgery to that hand or wrist. She denies any fever sweats or chills. MD Complaint: joint pain and other Onset (ago): day(s) Pain Consistency: constant Location: left and upper extremity (Wrist) Quality: aching Radiation: proximal Relieving factors: nothing Exacerbating factors: nothing Associated symptoms: Deny arthralgias, chest pain, fever(s), myalgias, rash or short of breath Review of Systems Const: Denies: fever(s) ENMT: Denies: throat pain, ear or mastoid pain, nasal discharge or nasal congestion Card: Denies: chest pain Resp: Denies: dyspnea, productive cough or non-productive cough GI: Denies: abdominal pain, nausea, vomiting, hematemesis, coffee ground emesis, diarrhea, constipation, bloating, hematochezia or melena : Denies: flank pain, difficulty voiding, dysuria, urinary frequency or urinary urgency Skin/Breast: Denies: rash PFSH ED PFSH: Medical History Schizoaffective disorder, bipolar type Social History Smoking and tobacco status: current every day smoker cigarettes Years cigarettes smoked: 30 Quit status (tobacco): considering quitting Second hand smoke exposure: Yes Female Reproductive History: Date of last menstrual period: 09/02/19 Physical Exam Const: COMMON NORMALS: no acute distress GENERAL APPEARANCE: cooperative and comfortable ORIENTATION/CONSCIOUSNESS: Yes awake, Yes oriented to person, Yes oriented to place and Yes oriented to time HENMT: COMMON NORMALS: normocephalic, atraumatic and hearing grossly normal bilaterally HEAD & SCALP: normocephalic and atraumatic Neck/C-Spine: COMMON NORMALS: no JVD Resp: COMMON NORMALS: normal respiratory effort, No retractions, No use of accessory muscles and clear to auscultation bilaterally AUSCULTATION: clear to auscultation bilaterally Cardio: COMMON NORMALS: no JVD, regular rate, regular rhythm and No murmurs present (Cardio) RATE: regular rate RHYTHM: regular rhythm Extremity: COMMON NORMALS: normal to inspection, capillary refill normal, no clubbing, cyanosis or edema, no calf tenderness and no pedal edema NARRATIVE EXTREMITY EXAM: Tinel's and Phalen's are negative sensation equal bilaterally in the distribution of the ulnar and medial nerve massage coordinator strength 5 of 5 bilaterally. Patient able to flex and extend at the wrist without difficulty or pain. No pain with axial loading of the thumb or with pressure in the anatomical snuffbox. There is no deformity no swelling no skin breakdown ulceration or rash. Neuro: SENSORIUM/ORIENTATION: Yes oriented to person, Yes oriented to place and Yes oriented to time Skin: COMMON NORMALS: no rashes or lesions noted GENERAL SKIN EXAM: no rashes or lesions noted Course Vital Signs: Vital signs: Vital Signs Temperature 98.0 F 04/01/20 04:24 Pulse Rate 76 04/01/20 07:24 Respiratory Rate 18 04/01/20 07:24 Blood Pressure 152/84 04/01/20 07:24 Pulse Oximetry 100 04/01/20 07:24 MDM - Extremity (Nontraumatic) MDM Narrative: Medical decision making narrative: Continue current diclofenac referral to Ortho for further evaluation may need advanced imaging. Discharge Plan Discharge Patient Disposition: Home Clinical Impression: Left wrist sprain Prescriptions: No Action hydrocodone-acetaminophen 5-325 mg tablet 1 tab PO TID PRN (Reason: pain) RF: 0 metformin 500 mg tablet 500 mg PO DAILY RF: 0 aspirin 81 mg tablet,delayed release (DR/EC) 81 mg PO DAILY RF: 0 trazodone 100 mg tablet 200 mg PO DAILY PRN (Reason: insomnia) Qty: 60 RF: 2 olanzapine 5 mg tablet 5 mg PO BID Qty: 60 RF: 2 buspirone 10 mg tablet 10 mg PO BID Qty: 60 RF: 2 Prevacid 30 mg capsule,delayed release(DR/EC) 30 mg PO DAILY Qty: 30 RF: 0 diclofenac sodium 75 mg tablet,delayed release (DR/EC) 75 mg PO Q12H PRN (Reason: pain) Qty: 20 RF: 0 Discharge Orders: Discharge ED (Routine); Ordered 04/01/20 Ordered By: Mak Cotter Referrals: Meka Wayne DO [Primary Care Provider] - Patient Instructions: Opioid Safety Coding Level of Care Code ED Braiding Machine Operator for Chg Fwd Exam Detailed
[2020-04-01 07:24] VITALS: BP 152/84; PULSE 76; RESP 18; O2SAT 100
--- NOTE | 2020-04-01 10:21 | DCPLANNER ---
advertising manager had message to schedule a follow up appointment for patient with ortho. advertising manager called the ortho clinic, spoke with Kelsey, gave clinic patients information. advertising manager was told that patients information would be printed and reviewed. Clinic will call patient with appointment information.
--- NOTE | 2020-04-02 08:59 | DCPLANNER ---
Patient has a follow up appointment scheduled for Sunday, April 05, [address] at 9:[address] Baker. continuous improvement manager informed patient of the scheduled appointment.
--- NOTE | 2020-05-06 15:36 | DCPLANNER ---
Patient had a follow up appointment scheduled with ortho - patient did attend appointment.
== END 2020-04-01 07:25 | disposition home or self-care (01) ==
PROVIDERS: Emergency Provider Family Medicine; PCP Family Medicine
DX: M25.532 Pain in left wrist (principal); Z79.82 Long term (current) use of aspirin; Z79.891 Long term (current) use of opiate analgesic; F17.210 Nicotine dependence, cigarettes, uncomplicated
CPT/HCPCS: 12345; 29125; 99282

== ENCOUNTER 2020-04-02 08:31 | Emergency (ER) | payer MEDICARE, MEDICAID, SELFPAY ==
[2020-04-02 08:38] VITALS: BP 136/93; PULSE 94; RESP 18; TEMP 36.7; O2SAT 98; BMI 44.6
--- NOTE | 2020-04-02 08:55 | W.ED.EXTPRO ---
HPI - Extremity Problem General: Chief complaint: Extremity Injury, Upper Stated complaint: FALL/ CP Time Seen by Provider: 04/02/20 08:47 History of Present Illness: HPI Narrative: Patient arrives by ambulance with a complaint about the left trapezius pain and chest wall pain with movement since her fall. Also has a history of reflux and says a new medicine she was placed on is making her reflux worse and she is having acid come up now. MD Complaint: extremity pain Onset (ago): week(s) Pain Consistency: intermittent Location: left and upper extremity Severity scale (1-10): 4 Quality: aching Radiation: none Relieving factors: immobilization Exacerbating factors: range of motion Associated symptoms: Reports other; Deny chest pain, fever(s) or rash Context: other (Recent fall) Review of Systems Narrative: Patient says chest wall hurts with range of motion deep cough, patient denies shortness of breath nausea vomiting or pain that radiates up the neck or down the arm, denies any chest pressure. Const: Denies: fever(s), chills or body aches Eyes: Denies: change in vision or blurry vision ENMT: Denies: throat pain or nasal congestion Card: Denies: chest pain or dyspnea on exertion Resp: Denies: dyspnea, productive cough or non-productive cough GI: Reports: other (Having reflux since starting medication); Denies: abdominal pain, nausea or vomiting Musc: Reports: extremity pain (Left trapezius is sore and tender with range of motion and left wrist angeles) Skin/Breast: Denies: rash Neuro: Denies: headache(s) Psych: Denies: anxiety or depression Leo/Lymph: Denies: easy bruising PFSH ED PFSH: Medical History Schizoaffective disorder, bipolar type Social History Smoking and tobacco status: current every day smoker cigarettes Years cigarettes smoked: 30 Quit status (tobacco): considering quitting Second hand smoke exposure: Yes Female Reproductive History: Date of last menstrual period: 09/02/19 Physical Exam Const: COMMON NORMALS: no acute distress, average body habitus and patient oriented x3 HENMT: COMMON NORMALS: normocephalic HEAD & SCALP: normal to inspection and normocephalic FACE & SINUS: normal facial exam Eye: COMMON NORMALS: conjunctivae normal GENERAL EYE: appearance normal, both eyes and all related structures CONJUNCTIVA: Yes conjunctivae normal Neck/C-Spine: COMMON NORMALS: no JVD Chest: CHEST: Yes abnormal inspection of the chest (Tender to the chest mildly on palpation throughout the whole chest) and No localized rib tenderness with anteroposterior compression Breast/axilla inspection: Yes normal inspection of the axillae Resp: COMMON NORMALS: normal respiratory effort and clear to auscultation bilaterally AUSCULTATION: clear to auscultation bilaterally Cardio: COMMON NORMALS: no JVD, regular rate and regular rhythm RATE: regular rate RHYTHM: regular rhythm GI: COMMON NORMALS: Normal to inspection, nondistended, normoactive bowel sounds present Back/Pelvis: GENERAL BACK: Yes other (Left trapezius sore throughout body of muscle with palpation range of motio) Extremity: COMMON NORMALS: full ROM LEFT UPPER EXTREMITY: Yes lower arm (Patient wearing brace) Neuro: COMMON NORMALS: patient oriented x3 Course Vital Signs: Vital signs: Vital Signs Temperature 98.0 F 04/02/20 08:38 Pulse Rate 94 04/02/20 08:38 Respiratory Rate 18 04/02/20 08:38 Blood Pressure 136/93 04/02/20 08:38 Pulse Oximetry 98 04/02/20 08:38 Discharge Plan Discharge Patient Disposition: Home Clinical Impression: Gastroesophageal reflux disease Qualifiers: Esophagitis presence: without esophagitis Qualified Code(s): K21.9 - Gastro-esophageal reflux disease without esophagitis Strain of left trapezius muscle Qualifiers: Encounter type: initial encounter Qualified Code(s): S46.812A - Strain of other muscles, fascia and tendons at shoulder and upper arm level, left arm, initial encounter Contusion of left chest wall Qualifiers: Encounter type: initial encounter Qualified Code(s): S20.212A - Contusion of left front wall of thorax, initial encounter Condition: Stable Prescriptions: New Celebrex 100 mg capsule 100 mg PO BID Qty: 20 RF: 0 Skelaxin 800 mg tablet 800 mg PO TID PRN (Reason: muscle pain) Qty: 14 RF: 0 Discontinued diclofenac sodium 75 mg tablet,delayed release (DR/EC) 75 mg PO Q12H PRN (Reason: pain) Qty: 20 RF: 0 No Action hydrocodone-acetaminophen 5-325 mg tablet 1 tab PO TID PRN (Reason: pain) RF: 0 metformin 500 mg tablet 500 mg PO DAILY RF: 0 aspirin 81 mg tablet,delayed release (DR/EC) 81 mg PO DAILY RF: 0 trazodone 100 mg tablet 200 mg PO DAILY PRN (Reason: insomnia) Qty: 60 RF: 2 olanzapine 5 mg tablet 5 mg PO BID Qty: 60 RF: 2 buspirone 10 mg tablet 10 mg PO BID Qty: 60 RF: 2 lansoprazole [Prevacid] 30 mg capsule,delayed release(DR/EC) 30 mg PO DAILY Qty: 30 RF: 0 Discharge Orders: Discharge ED (Routine); Ordered 04/02/20 Ordered By: Duke Guerra Referrals: Meka Wayne DO [Primary Care Provider] - Yasmany Tavera MD [Physician] - 04/05/20 9:45 am Discharge Diet: Usual diet Discharge Activity: Increase activity as tolerated Patient Instructions: Muscle Strain (ED), Contusion in Adults (ED), Opioid Safety Activity Restrictions/Additional Instructions: Follow-up with medical provider as directed. Take medications as prescribed. Return to the ER or your medical provider if condition worsens. Please read and understand discharge instructions. If any questions ask please. Apply ice to areas that are sore. Do slow range of motion exercises to increase your range of motion. Coding Level of Care Code ED Gas Derrick Operator for Bruce Davis
[2020-04-02] MEDS: ketorolac 60 mg/2 mL INJ IM (09:06)
[2020-04-02] MEDS: orphenadrine 30 mg/mL Inj 2 mL 60 MG IM (09:06)
[2020-04-02 09:36] VITALS: RESP 18
== END 2020-04-02 09:36 | disposition home or self-care (01) ==
PROVIDERS: Emergency Provider Nurse Practitioner Family; PCP Family Medicine
DX: K21.9 Gastro-esophageal reflux disease without esophagitis (principal); S46.812A Strain of other muscles, fascia and tendons at shoulder and upper arm level, left arm, initial encounter; S20.212A Contusion of left front wall of thorax, initial encounter; Z79.84 Long term (current) use of oral hypoglycemic drugs; Z79.82 Long term (current) use of aspirin; X58.XXXA Exposure to other specified factors, initial encounter
CPT/HCPCS: 96372; 99283; J1885; J2360

== ENCOUNTER 2020-04-19 23:59 | Emergency (ER) | payer MEDICARE, MEDICAID, SELFPAY ==
[2020-04-20 00:01] VITALS: BP 143/94; PULSE 93; RESP 17; TEMP 36.9; O2SAT 99; BMI 42.9
--- NOTE | 2020-04-20 00:02 | ED_ITS ---
HPI - Fall General: Chief Complaint: Fall Stated Complaint: FALL 1 MONTH AGO Time Seen by Provider: 04/20/20 00:01 Source: patient Mode of arrival: ambulatory Limitations: no limitations History of Present Illness: HPI Narrative: 44-year-old female comes in today for complaints of chest discomfort and indigestion. Patient reports some increased gastric discomfort over the last month. Patient has recently been placed on pantoprazole but it has not helped. Patient appears well. Patient appears in no acute distress. Associated symptoms-after fall: Reports abdominal pain Review of Systems General: Reports: 10 or more systems reviewed and unremarkable except in HPI and below GI: Reports: abdominal pain [facility] ED PFSH: Medical History Schizoaffective disorder, bipolar type Social History Smoking and tobacco status: current every day smoker cigarettes Years cigarettes smoked: 30 Quit status (tobacco): considering quitting Second hand smoke exposure: Yes Female Reproductive History: Date of last menstrual period: 09/02/19 Physical Exam Const: COMMON NORMALS: no acute distress and patient oriented x3 GENERAL APPEARANCE: cooperative HENMT: COMMON NORMALS: normocephalic and Normal external nose present HEAD & SCALP: normal to inspection and normocephalic NOSE: Normal external nose present MOUTH: Normal oral and palatal mucosa present THROAT: posterior oropharynx normal Eye: GENERAL EYE: appearance normal, both eyes and all related structures Neck/C-Spine: COMMON NORMALS: full ROM Lymph: LYMPHATIC: no lymphadenopathy noted Chest: COMMONS NORMALS: normal inspection of the chest Resp: COMMON NORMALS: normal respiratory effort EFFORT & INSPECTION: Yes able to speak in complete sentences Cardio: COMMON NORMALS: regular rate and regular rhythm RATE: regular rate RHYTHM: regular rhythm GI: COMMON NORMALS: Soft to palpation AUSCULTATION: Yes normoactive bowel sounds PALPATION: Yes Soft to palpation and Yes Tenderness to palpation present (GI) (Midepigastric mild tenderness) PERCUSSION: normal to percussion : COMMON NORMALS: Yes no CVA tenderness BLADDER/KIDNEY EXAM: Yes no CVA tenderness Back/Pelvis: COMMON NORMALS: no CVA tenderness and thoracic and lumbar spine normal to inspection Extremity: COMMON NORMALS: normal to inspection Neuro: COMMON NORMALS: patient oriented x3 and moves all extremities Psych: COMMON NORMALS: mental status grossly normal and cooperative Skin: COMMON NORMALS: no rashes or lesions noted GENERAL SKIN EXAM: no rashes or lesions noted Course ED course: 1244, patient reports relief of pain and discomfort with the use of a GI cocktail.wjw Vital Signs: Vital signs: Vital Signs Temperature 98.5 F 04/20/20 00:01 Pulse Rate 93 04/20/20 00:01 Respiratory Rate 17 04/20/20 00:01 Blood Pressure 143/94 04/20/20 00:01 Pulse Oximetry 99 04/20/20 00:01 MDM - Fall MDM Narrative: Medical decision making narrative: Patient comes in today for complaints of some gastric discomfort. Patient reports burning and irritation going up into her chest. Patient was recently placed on pantoprazole to help with this but has not received much relief. On exam patient's abdomen soft with some mild midepigastric tenderness. Lungs are clear to auscultation. No pain is noted on palpation of the chest wall. Review of the record noted patient had a CTA done within the last 2 weeks that was negative for any PE or other abnormality. Chest x-ray was normal. Vital signs were normal. Differential diagnosis includes GERD, peptic ulcer disease, malingering. Reviewed exam with patient with recommendations for treatment. Discussed the use of the medication pantoprazole and recommendations for taking the medication. Patient reported understanding and agreed to plan. Discharge Plan Discharge Patient Disposition: Home Clinical Impression: Chest pain due to GERD Condition: Stable Prescriptions: New Carafate 1 gram tablet 1 g PO TID Qty: 30 RF: 0 No Action hydrocodone-acetaminophen 5-325 mg tablet 1 tab PO TID PRN (Reason: pain) RF: 0 metformin 500 mg tablet 500 mg PO DAILY RF: 0 aspirin 81 mg tablet,delayed release (DR/EC) 81 mg PO DAILY RF: 0 trazodone 100 mg tablet 200 mg PO DAILY PRN (Reason: insomnia) Qty: 60 RF: 2 olanzapine 5 mg tablet 5 mg PO BID Qty: 60 RF: 2 buspirone 10 mg tablet 10 mg PO BID Qty: 60 RF: 2 lansoprazole [Prevacid] 30 mg capsule,delayed release(DR/EC) 30 mg PO DAILY Qty: 30 RF: 0 Celebrex 100 mg capsule 100 mg PO BID Qty: 20 RF: 0 Skelaxin 800 mg tablet 800 mg PO TID PRN (Reason: muscle pain) Qty: 14 RF: 0 Discharge Orders: Discharge ED (Routine); Ordered 04/20/20 Ordered By: Saul Isidro Referrals: Meka Wayne DO [Primary Care Provider] - Discharge Diet: Usual diet Discharge Activity: Increase activity as tolerated Patient Instructions: Opioid Safety Activity Restrictions/Additional Instructions: Drink plenty of water with medication. Take pantoprazole 30 minutes before the first meal of your day. Make sure to eat 30 minutes after taking the medication. Use sucralfate 3 times a day as needed for stomach distress. Drink plenty of water with medication. Avoid spicy, greasy, and acidic foods until gastric pain is improved. Slowly add foods back to diet. Try elevating the head of your bed to prevent reflux at nighttime. Follow-up with primary care in 1 week for recheck. Coding Level of Care Code ED Hand Ii Thermal Cutter for Robertg Fwd Exam Comprehensive
[2020-04-20] MEDS: lidocaine 2% viscous 15 ML, aluminum-mag hydrox-simethicon 30 ML, sucralfate oral liq 1 GM PO (00:26)
[2020-04-20 00:30] VITALS: BP 134/93; PULSE 82; O2SAT 100
[2020-04-20 01:11] VITALS: BP 127/87; PULSE 90; RESP 16; O2SAT 98
== END 2020-04-20 01:10 | disposition home or self-care (01) ==
PROVIDERS: Emergency Provider Nurse Practitioner Family; PCP Family Medicine
DX: K21.9 Gastro-esophageal reflux disease without esophagitis (principal); Z79.82 Long term (current) use of aspirin; Z79.84 Long term (current) use of oral hypoglycemic drugs; F17.210 Nicotine dependence, cigarettes, uncomplicated
CPT/HCPCS: 99283

== ENCOUNTER → 2020-04-20 11:47 | Outpatient (BNVA) | payer MEDICARE, MEDICAID, SELFPAY | PROVIDERS: PCP Family Medicine; Visit Provider Nurse Practitioner Psychiatric/Mental Health | DX: Z79.899 Other long term (current) drug therapy (principal) | CPT/HCPCS: 80061; 83036 ==

== ENCOUNTER → 2020-04-27 14:00 | Outpatient (BNVA) | payer MEDICARE, MEDICAID, SELFPAY | PROVIDERS: PCP Family Medicine; Visit Provider Orthopaedic Surgery | DX: M79.642 Pain in left hand (principal); M25.532 Pain in left wrist | CPT/HCPCS: 73110; 73130 ==

== ENCOUNTER 2020-05-24 12:55 | Outpatient (RCR) | payer MEDICARE, MEDICAID, SELFPAY | END 2020-06-18 23:59 | disposition home or self-care (01) | LOC: SOT 12:55 | PROVIDERS: PCP Family Medicine; Referring Provider Orthopaedic Surgery; Visit Provider Orthopaedic Surgery | DX: S63.502D Unspecified sprain of left wrist, subsequent encounter (principal) | CPT/HCPCS: 97166 ==

== ENCOUNTER → 2020-06-21 08:37 | Outpatient (BNVA) | payer MEDICARE, SELFPAY | PROVIDERS: PCP Family Medicine; Visit Provider Nurse Practitioner Psychiatric/Mental Health | DX: F25.0 Schizoaffective disorder, bipolar type (principal); Z79.899 Other long term (current) drug therapy | CPT/HCPCS: 99214 ==

== ENCOUNTER 2020-06-25 09:41 | Outpatient (CLI) | payer MEDICARE, MEDICAID, SELFPAY ==
--- NOTE | 2020-06-25 09:48 | FL_ITS ---
WS: [id number] Barium swallow and esophagram, upper GI series with air, 06/25/2020 Clinical Data: K21.9 - Gastro-esophageal reflux disease without esophagitis Comparison: None. Fluoroscopy time: 1.4 minutes. Findings: The patient swallowed the thick and thin barium, and it flowed to the hypopharynx without hesitation. No stricture, mass, polyp or erosion was seen. There is minimal impingement onto the posterior phary nx by anterior osteophytes from C3 through C6. The barium passed into the esophagus and there was normal motility throughout. No hiatal hernia, str icture, polyp, mass, erosion or ulcer was noted. There is reflux from the gastroesophageal junction a lmost to the thoracic inlet.. The barium passed into the stomach which was well distended. No erosion, polyp, mass or deformity cou ld be seen. No gastric ulcer was present. Barium then passed into the duodenal bulb which distended normally without ulceration. There is a yoav ling defect in the base of the duodenal bulb which could represent a polyp. The proximal small bowel is normal. FL/FL upper GI w air* [id number] Impression: 1. Minimal posterior impingement of the pharynx by anterior osteophytes C3-C6. 2. Large amount of reflux from the gastroesophageal junction. The thoracic inle t without hiatal hernia or ulceration. 3. Possible small polyp in the duodenal bulb.
== END 2020-06-25 09:42 | disposition home or self-care (01) ==
PROVIDERS: PCP Family Medicine; Visit Provider Surgery
DX: K21.9 Gastro-esophageal reflux disease without esophagitis (principal)
CPT/HCPCS: 74246

== ENCOUNTER 2020-08-11 10:10 | Outpatient (CLI) | payer MEDICARE, MEDICAID, SELFPAY ==
--- NOTE | 2020-08-11 10:24 | XR_ITS ---
WS: [id number] LUMBAR SPINE TECHNIQUE: 5 views of the lumbar spine CLINICAL INFORMATION: LOW BACK PAIN, RIGHT FLANK PAIN COMPARISON: None. FINDINGS: Five [id number] lumbar vertebral bodies. Mild lumbar curve convex right. IVC filter. Disc space heights vertebral body heights well-preserved. Mild disc space narrowing L2-3. Mild facet arthropathy L5-S1. XR/XR lumbar spine min 4V [id number] IMPRESSION: 1. Mild lumbar curve convex right. 2. IVC filter. 3. No acute compression fractures. 4. Mild disc space narrowing L2-3. 5. Mild facet arthropathy L5-S1.
== END 2020-08-11 10:11 | disposition home or self-care (01) ==
PROVIDERS: PCP Family Medicine; Visit Provider Nurse Practitioner Family
DX: M54.5 Low back pain (principal); R10.9 Unspecified abdominal pain; M47.817 Spondylosis without myelopathy or radiculopathy, lumbosacral region
CPT/HCPCS: 72110

== ENCOUNTER → 2020-08-16 08:24 | Outpatient (BNVA) | payer MEDICARE, MEDICAID, SELFPAY | PROVIDERS: PCP Family Medicine; Visit Provider Nurse Practitioner Psychiatric/Mental Health | DX: F25.0 Schizoaffective disorder, bipolar type (principal); Z79.899 Other long term (current) drug therapy | CPT/HCPCS: 99213 ==

== ENCOUNTER → 2020-10-05 13:43 | Outpatient (BNVA) | payer MEDICARE, MEDICAID, SELFPAY | PROVIDERS: PCP Family Medicine; Visit Provider Nurse Practitioner Psychiatric/Mental Health | DX: F25.0 Schizoaffective disorder, bipolar type (principal); Z79.899 Other long term (current) drug therapy | CPT/HCPCS: 99213 ==

== ENCOUNTER 2020-10-12 07:51 | Outpatient (CLI) | payer MEDICARE, MEDICAID, SELFPAY ==
--- NOTE | 2020-10-12 08:00 | MR_ITS ---
WS: [id number] MRI LEFT WRIST without CONTRAST. COMPARISON: Radiographs 04/27/2020. Multiplanar, multisequence imaging is performed without contrast. History: Pain in wrist after fall in March 2020. Only a few sequences are submitted. Patient was unable to complete examination due to anxiety and srinivasan ic attack. No marrow edema within the bones of the wrist to suggest an acute injury or healing injury. There is a small subchondral cyst in the proximal capitate. Additional very small subchondral cystic changes a re noted in the lunate and distal scaphoid. No widening of the scapholunate interval. The ligament ap pears intact. Carpal rows are normally aligned. No evidence for tenosynovitis. No muscle atrophy or e margaret. Triangular fibrocartilage is normal. No fluid or widening of the distal radial ulnar joint. MR/MR wrist LT wo con* [id number] IMPRESSION: 1. Examination is limited due to patient's anxiety. 2. No fractures. 3. There are a few scattered subchondral cystic changes within the lunate, sca phoid and capitate. 4. Scapholunate ligament and the triangular fibrocartilage appear to be intact . No joint effusion.
== END 2020-10-12 07:52 | disposition home or self-care (01) ==
PROVIDERS: PCP Nurse Practitioner Family; Visit Provider Nurse Practitioner Family
DX: M25.532 Pain in left wrist (principal)
CPT/HCPCS: 73221

== ENCOUNTER → 2020-11-30 12:33 | Outpatient (BNVA) | payer MEDICAID, SELFPAY | PROVIDERS: PCP Nurse Practitioner Family; Visit Provider Nurse Practitioner Psychiatric/Mental Health | DX: F25.0 Schizoaffective disorder, bipolar type (principal); Z79.899 Other long term (current) drug therapy | CPT/HCPCS: 99213 ==

== ENCOUNTER → 2021-01-18 10:51 | Outpatient (BNVA) | payer MEDICARE, SELFPAY | PROVIDERS: PCP Nurse Practitioner Family; Visit Provider Nurse Practitioner Psychiatric/Mental Health | DX: F25.0 Schizoaffective disorder, bipolar type (principal); Z79.899 Other long term (current) drug therapy | CPT/HCPCS: 99213 ==

== ENCOUNTER 2021-03-28 16:06 | Emergency (ER) | payer MEDICARE, MEDICAID, SELFPAY ==
[2021-03-28 16:35] VITALS: BP 135/86; PULSE 74; RESP 18; TEMP 36.6; O2SAT 98; BMI 41.4
--- NOTE | 2021-03-28 17:14 | W.ED.BACK ---
HPI - Back Pain/Injury General: Chief Complaint: General Medical Stated Complaint: Right leg pain Time Seen by Provider: 03/28/21 17:05 Source: patient Mode of arrival: ambulatory Limitations: no limitations History of Present Illness: Patient is a 45-year-old female who presents to ED today with complaints of lower back and right sided back pain with radiation down the lateral aspect of her right thigh and into her right groin that she states started a few days ago. Patient states she does have chronic back pain in which she follows up with pain management for. Patient is taking hydrocodone daily for this. She denies saddle anesthesia or difficulty urinating. No bowel incontinence. Patient continues to ambulate normally. She is not having any swelling or color/temperature changes to her extremity. She does have a separate complaint of some sores to her right lower leg that she states PCP put her on antibiotics for last week. She states the sores are much better after starting the antibiotics and are now scabbing over. MD elicited complaint: back pain Pertinent past history: prior back pain Onset (ago): day(s) Similar Symptoms Previously: Yes Location: lumbar spine and right lower back Radiation: right upper leg Relieving factors: none Associated symptoms: Deny abdominal pain, chills, difficulty walking, dysuria, fatigue, fever(s) or hematuria Work related injury: No Review of Systems Const: Denies: fever(s), chills, body aches, fatigue or malaise Card: Denies: chest pain Resp: Denies: dyspnea GI: Denies: abdominal pain : Denies: flank pain, dysuria or hematuria Musc: Reports: back pain; Denies: neck pain, extremity pain, extremity swelling, joint pain, joint swelling, joint redness, joint warmth, joint stiffness, limited range of motion, muscle cramps, muscle weakness or decrease in muscle mass Skin/Breast: Reports: other (sores to R LE-improving) Neuro: Denies: headache(s), numbness in extremities, weakness in extremities, sensory changes, difficulty walking or dizziness [facility] ED PFSH: Medical History Psychiatric care Schizoaffective disorder, bipolar type Social History Smoking and tobacco status: current some day smoker cigarettes Years cigarettes smoked: 30 Quit status (tobacco): considering quitting Second hand smoke exposure: Yes Female Reproductive History: Date of last menstrual period: 09/02/19 Physical Exam Const: COMMON NORMALS: no acute distress, patient oriented x3, no limitations and alert GENERAL APPEARANCE: cooperative NUTRITIONAL APPEARANCE: obese morbidly obese ORIENTATION/CONSCIOUSNESS: Yes awake, Yes oriented to person, Yes oriented to place and Yes oriented to time HENMT: COMMON NORMALS: normocephalic and atraumatic HEAD & SCALP: normocephalic and atraumatic Resp: COMMON NORMALS: normal respiratory effort and clear to auscultation bilaterally AUSCULTATION: clear to auscultation bilaterally Cardio: COMMON NORMALS: regular rate and regular rhythm RATE: regular rate RHYTHM: regular rhythm : COMMON NORMALS: Yes no CVA tenderness BLADDER/KIDNEY EXAM: Yes no CVA tenderness Back/Pelvis: COMMON NORMALS: no CVA tenderness THORACIC SPINE/UPPER BACK: Yes normal to inspection, Yes thoracic ROM normal, No thoracic spinal tenderness and No paraspinal muscle tenderness LUMBAR SPINE/LOWER BACK: Yes normal to inspection, No ROM limited, Yes lumbar spinal tenderness Lumbar spinal tenderness location: L3, L4 and L5, Yes paraspinal muscle tenderness Lumbar paraspinal muscle tenderness: right and No straight leg raise negative bilaterally PELVIS: Yes buttocks normal SACROILIAC JOINTS: Yes SI joints normal Extremity: COMMON NORMALS: full ROM, capillary refill normal, no joint enlargement, no clubbing, cyanosis or edema, no calf tenderness and no pedal edema NARRATIVE EXTREMITY EXAM: pt has a few 1cm or smaller scabbed/dry sores to the lateral aspect of her proximal R lower extremity; she states lesions have vastly improved since starting abx; no swelling, drainage, or active signs of infection at this time Neuro: COMMON NORMALS: patient oriented x3, moves all extremities, no focal motor deficits and no sensory deficits noted SENSORIUM/ORIENTATION: Yes alert, Yes oriented to person, Yes oriented to place and Yes oriented to time MOTOR EXAM: 5/5 motor strength present throughout Skin: NARRATIVE SKIN EXAM: see extremity assessment; otherwise normal skin findings Course Vital Signs: Vital signs: Vital Signs Temperature 97.9 F 03/28/21 16:35 Pulse Rate 74 03/28/21 16:35 Respiratory Rate 18 03/28/21 16:35 Blood Pressure 135/86 03/28/21 16:35 Pulse Oximetry 98 03/28/21 16:35 MDM - Back Pain/Injury Medical Decision Making Patient most likely experiencing lumbar radiculopathy discomfort from her chronic back pain. She states she follows with pain management for this. She has been offered nerve ablations, spinal injections, etc for other forms of treatment but she states she is extremely scared of needles and have denied these therapies. Patient believes she has an appointment with PCP this week or next week for follow-up of the skin sores. At this time will place patient on anti-inflammatories and steroids to help with her back discomfort. Recommend she follow-up with PCP or pain management if pain persists. Return to ED precautions verbally given to patient. Discharge Plan Discharge Patient Disposition: Home Clinical Impression: Acute right lumbar radiculopathy Condition: Stable Prescriptions: New ibuprofen 800 mg tablet 800 mg PO Q8H PRN (Reason: pain) Qty: 20 0RF Medrol (Dennis) 4 mg tablets,dose pack See Rx Instructions .ROUTE .COMPLEX Qty: 21 0RF Rx Instructions: orally per package directions No Action hydrocodone-acetaminophen 5-325 mg tablet 1 tab PO QID PRN (Reason: pain) 0RF metformin 500 mg tablet 500 mg PO DAILY 0RF metoprolol succinate 25 mg tablet extended release 24 hr 12.5 mg PO DAILY 0RF buspirone 10 mg tablet 20 mg PO BID Qty: 120 1RF Rx Instructions: Take 2 tablets by mouth every morning and evening olanzapine 7.5 mg tablet 7.5 mg PO BID Qty: 60 1RF Rx Instructions: Take one tablet by mouth every morning and at bedtime aspirin 81 mg tablet,delayed release (DR/EC) 81 mg PO DAILY 0RF pantoprazole 40 mg tablet,delayed release (DR/EC) 80 mg PO DAILY 0RF Carafate 1 gram tablet 1 g PO TID Qty: 30 0RF Discharge Orders: Discharge ED (Routine); Ordered 03/28/21 Ordered By: Katelynn Encarnacion Referrals: Magalie Acevedo, [employer] CLEANER [Primary Care Provider] - Patient Instructions: Lumbar Radiculopathy (ED) Coding Level of Care Code ED Coating Manager for Bruce Davis
[2021-03-28 17:49] VITALS: BP 120/82; PULSE 83; RESP 16; O2SAT 98
== END 2021-03-28 17:50 | disposition home or self-care (01) ==
PROVIDERS: Emergency Provider Physician Assistant; PCP Nurse Practitioner Family
DX: M54.16 Radiculopathy, lumbar region (principal); Z79.84 Long term (current) use of oral hypoglycemic drugs; Z79.82 Long term (current) use of aspirin; F17.210 Nicotine dependence, cigarettes, uncomplicated
CPT/HCPCS: 99281

== ENCOUNTER 2021-03-31 03:40 | Emergency (ER) | payer MEDICARE, MEDICAID, SELFPAY ==
[2021-03-31 03:41] VITALS: BP 133/103; PULSE 89; RESP 16; TEMP 36.4; O2SAT 97; BMI 41.4
--- NOTE | 2021-03-31 03:44 | XRR_ITS ---
PROCEDURE INFORMATION: Exam: XR Left Wrist Exam date and time: 03/31/2021 3:44 AM Age: 45 years old Clinical indication: Patient HX: Left wrist pain. No injury. TECHNIQUE: Imaging protocol: XR Left wrist. Views: 3 or more views. COMPARISON: No relevant prior studies available. FINDINGS: Bones/joints: Unremarkable. Soft tissues: No apparent swelling. XR/XR wrist LT min 3V* [id number] IMPRESSION: No acute findings.
--- NOTE | 2021-03-31 03:45 | W.ED.EXTPRO ---
HPI - Extremity Problem General: Chief complaint: Extremity Problem,Nontraumatic Stated complaint: LEFT WRIST/SHOULDER PAIN Time Seen by Provider: 03/31/21 03:44 Source: patient Mode of arrival: ambulatory Limitations: no limitations History of Present Illness: 45-year-old female states that over the last day she has been having some pain in her left wrist. She did tender to touch and pain with movement. She also had some slight pain in her left shoulder also worse with touch and movement. She denies any known injuries does have a history of arthritis seen here few days ago prescribed ibuprofen states that helped her pain slightly. Denies any fevers. Associated symptoms: Deny chest pain, fever(s) or rash Review of Systems Const: Denies: fever(s), chills, body aches or change in appetite Eyes: Denies: blurry vision or eye discomfort ENMT: Denies: throat pain or dental pain Card: Denies: chest pain Resp: Denies: dyspnea GI: Denies: abdominal pain, nausea, vomiting or diarrhea : Denies: dysuria Musc: Reports: extremity pain Skin/Breast: Denies: rash Neuro: Denies: headache(s) Psych: Denies: depression Leo/Lymph: Denies: easy bruising All/Imm: Denies: urticaria PFSH ED PFSH: Medical History Psychiatric care Schizoaffective disorder, bipolar type Social History Smoking and tobacco status: current some day smoker cigarettes Years cigarettes smoked: 30 Quit status (tobacco): considering quitting Second hand smoke exposure: Yes Female Reproductive History: Date of last menstrual period: 09/02/19 Physical Exam Const: COMMON NORMALS: no acute distress, patient oriented x3 and healthy appearing HENMT: COMMON NORMALS: normocephalic and atraumatic HEAD & SCALP: normocephalic and atraumatic Eye: COMMON NORMALS: Equal, round and reactive pupils present and EOMs intact bilaterally PUPIL: Yes Equal, round and reactive pupils present Neck/C-Spine: COMMON NORMALS: full ROM and supple Chest: COMMONS NORMALS: normal inspection of the chest and normal palpation of entire chest wall Resp: COMMON NORMALS: normal respiratory effort, No retractions, No use of accessory muscles and clear to auscultation bilaterally AUSCULTATION: clear to auscultation bilaterally Cardio: COMMON NORMALS: regular rate, regular rhythm and No murmurs present (Cardio) RATE: regular rate RHYTHM: regular rhythm GI: COMMON NORMALS: Normal to inspection, nondistended, normoactive bowel sounds present, Soft to palpation, non-tender and no masses PALPATION: Yes Soft to palpation Extremity: COMMON NORMALS: normal to inspection and full ROM NARRATIVE EXTREMITY EXAM: Slight tenderness over left wrist no obvious deformity distal pulses intact Neuro: COMMON NORMALS: patient oriented x3, moves all extremities and no focal motor deficits Psych: COMMON NORMALS: mental status grossly normal, Normal thought process present and cooperative THOUGHT PROCESS: Normal thought process present Skin: COMMON NORMALS: no rashes or lesions noted and no wounds GENERAL SKIN EXAM: no rashes or lesions noted Course Vital Signs: Vital signs: Vital Signs Temperature 97.5 F L 03/31/21 03:41 Pulse Rate 89 03/31/21 03:41 Respiratory Rate 16 03/31/21 03:41 Blood Pressure 133/103 03/31/21 03:41 Pulse Oximetry 97 03/31/21 03:41 MDM - Extremity (Nontraumatic) Medical Decision Making Patient presents here with wrist pain likely arthritis exam here is benign x-ray here is normal as well she stable for discharge return if worsening. Discharge Plan Discharge Patient Disposition: Home Clinical Impression: Left wrist pain Condition: Stable Prescriptions: No Action hydrocodone-acetaminophen 5-325 mg tablet 1 tab PO QID PRN (Reason: pain) 0RF metformin 500 mg tablet 500 mg PO DAILY 0RF metoprolol succinate 25 mg tablet extended release 24 hr 12.5 mg PO DAILY 0RF buspirone 10 mg tablet 20 mg PO BID Qty: 120 1RF Rx Instructions: Take 2 tablets by mouth every morning and evening olanzapine 7.5 mg tablet 7.5 mg PO BID Qty: 60 1RF Rx Instructions: Take one tablet by mouth every morning and at bedtime aspirin 81 mg tablet,delayed release (DR/EC) 81 mg PO DAILY 0RF pantoprazole 40 mg tablet,delayed release (DR/EC) 80 mg PO DAILY 0RF ibuprofen 800 mg tablet 800 mg PO Q8H PRN (Reason: pain) Qty: 20 0RF Medrol (Dennis) 4 mg tablets,dose pack See Rx Instructions .ROUTE .COMPLEX Qty: 21 0RF Rx Instructions: orally per package directions Carafate 1 gram tablet 1 g PO TID Qty: 30 0RF Discharge Orders: Discharge ED (Routine); Ordered 03/31/21 Ordered By: Veronika Rico Referrals: Magalie Acevedo INSOLE DEPARTMENT WORKER [Primary Care Provider] - 1-3 days Discharge Diet: Advance as tolerated Discharge Activity: Resume usual activity Patient Instructions: Arthralgia (ED) Coding Level of Care Code ED Electronic Specialist for Robertg Fwd Exam Comprehensive
== END 2021-03-31 04:10 | disposition home or self-care (01) ==
PROVIDERS: Emergency Provider Emergency Medicine; PCP Nurse Practitioner Family
DX: M25.532 Pain in left wrist (principal); Z79.84 Long term (current) use of oral hypoglycemic drugs; Z79.82 Long term (current) use of aspirin; F17.210 Nicotine dependence, cigarettes, uncomplicated
CPT/HCPCS: 73110; 99282

== ENCOUNTER 2021-04-07 09:52 | Outpatient (CLI) | payer MEDICARE, MEDICAID, SELFPAY ==
--- NOTE | 2021-04-07 10:09 | XR_ITS ---
WS: [id number] HIP WITH PELVIS RIGHT TECHNIQUE: 3 views of the right hip with pelvis CLINICAL INFORMATION: R HIP PAIN COMPARISON: None. FINDINGS: Moderate degenerative arthritis RIGHT hip with joint space narrowing. Hypertrophic spurring about the acetabulum. No acute fractures. XR/XR hip RT 2-3V wo/w pel* [id number] IMPRESSION: Moderate degenerative arthritis RIGHT hip with hypertrophic spurring. No acute fractures. Tonnis classification: grade 2: small cysts in femoral head/acetabulum or moder ate joint space narrowing or moderate loss of head sphericity
== END 2021-04-07 09:53 | disposition home or self-care (01) ==
PROVIDERS: PCP Nurse Practitioner Family; Visit Provider Nurse Practitioner Family
DX: M16.11 Unilateral primary osteoarthritis, right hip (principal)
CPT/HCPCS: 73502

== ENCOUNTER 2021-05-04 01:33 | Emergency (ER) | payer MEDICARE, MEDICAID, SELFPAY ==
--- NOTE | 2021-05-04 01:35 | XRR_ITS ---
PROCEDURE INFORMATION: Exam: XR Chest Exam date and time: 05/04/2021 1:35 AM Age: 45 years old Clinical indication: Chest pressure; Patient HX: C/O chest pain since yesterday. ; Additional info: Cp TECHNIQUE: Imaging protocol: XR of the chest. Views: 1 view. COMPARISON: CR XR chest 1V portable [id number] 03/24/2020 6:03 AM FINDINGS: Lungs: Unremarkable. No consolidation. Pleural spaces: Unremarkable. No pleural effusion. No pneumothorax. Heart/Mediastinum: Borderline to mild cardiomegaly. Bones/joints: Unremarkable. XR/XR chest 1V portable [id number] IMPRESSION: Borderline to mild cardiomegaly.
[2021-05-04 01:36] VITALS: BP 137/83; PULSE 82; RESP 16; TEMP 36.9; O2SAT 97; BMI 40.7
--- NOTE | 2021-05-04 01:36 | ECG_ITS ---
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 Measurements Intervals [place] Rate: 74 P: 29 ID: [id number] QRS: 41 QRSD: 87 T: 19 QT: 354 QTc: 395 Interpretive Statements SINUS RHYTHM WITH SINUS ARRHYTHMIA WITH SHORT ID INTERVAL NONSPECIFIC T-WAVE ABNORMALITY Compared to ECG 03/28/2020 05:19:29 T-wave abnormality now present Electronically Signed On 05-04-2021 18:43:22 CDT by Spencer Kate M.D. [id number]
[2021-05-04 01:44] LABS: Basophils # 0.1 10^3/uL (0.0-0.1); Basophils % 0.5 %; Eosinophils # 0.2 10^3/uL (0.0-0.8); Eosinophils % 1.7 %; Hematocrit 34.6 % (37.0-47.0); Hemoglobin 10.1 g/dL (11.5-15.3); Lymphocytes # 3.6 10^3/uL (0.8-4.8); Lymphocytes % 32.7 %; Mean Corpuscular HGB Conc 29.2 g/dL (30.0-36.0); Mean Corpuscular Hemoglobin 19.5 pg (28.0-34.0); Mean Corpuscular Volume 66.7 fl (81-99); Mean Platelet Volume 11.1 fL (7.4-10.4); Monocytes % 8.8 %; Neutrophils # 6.19 10^3/uL (1.8-7.7); Nucleated Red Blood Cells % 0 %; Platelet Count 316 10^3/cmm (130-400); Red Blood Count 5.19 10^6/uL (4.1-5.3); Red Cell Distribution Width 16.8 % (12.1-15.1); White Blood Count 11.1 10^3/uL (4.0-10.0)
--- NOTE | 2021-05-04 01:45 | W.ED.CHESTPA ---
Documented by User: TASIA Garcia 05/04/21 03:10 HPI - Chest Pain General: Chief Complaint: Chest Pain Stated Complaint: CP Time Seen by Provider: 05/04/21 01:37 History of Present Illness: Patient is a 45-year-old female comes to the ED via EMS with chest pain. While in route to emergency department EMS gave patient nitro and 324 mg of aspirin. Past medical history of hypertension and acid reflux. Patient's chest pain started at around 10 PM tonight. was laying down in her bed when chest pain started. She describes it as a sharp pain in the left side of chest. Reports having acid reflux in the past, but this feels different. Chest pain did not worsen with exertion. She rates chest pain about an 8 out of 10. The nitro she was given in ambulance improved chest pain some. Denies any nausea or diaphoresis upon onset of chest pain. Patient did eat dinner at about 8 PM tonight. Denies any past OR or any other cardiac issues. Denies fevers, shortness of breath, palpitations, abdominal pain, nausea/vomiting, bladder or bowel symptoms. Associated symptoms: Deny abdominal pain, dyspnea, fever(s), nausea, palpitations or vomiting Review of Systems Const: Denies: fever(s), chills or fatigue Eyes: Denies: change in vision or eye discomfort ENMT: Denies: throat pain, odynophagia, nasal discharge or nasal congestion Card: Reports: chest pain; Denies: palpitations, edema, swelling of feet/ankles, dyspnea on exertion or orthopnea Resp: Denies: dyspnea, productive cough or non-productive cough GI: Denies: abdominal pain, nausea, vomiting, diarrhea, constipation or hematochezia : Denies: flank pain, dysuria or hematuria Musc: Denies: neck pain, back pain or extremity swelling Skin/Breast: Denies: rash or new lesions Neuro: Denies: headache(s), numbness in extremities or weakness in extremities PFS ED PFSH: Medical History Psychiatric care Schizoaffective disorder, bipolar type Social History Smoking and tobacco status: current some day smoker cigarettes Years cigarettes smoked: 30 Quit status (tobacco): considering quitting Second hand smoke exposure: Yes Female Reproductive History: Date of last menstrual period: 09/02/19 Physical Exam Const: COMMON NORMALS: patient oriented x3 and alert GENERAL APPEARANCE: cooperative and comfortable NUTRITIONAL APPEARANCE: obese HENMT: COMMON NORMALS: normocephalic HEAD & SCALP: normocephalic MOUTH: Normal oral and palatal mucosa present THROAT: posterior oropharynx normal and uvula midline Eye: COMMON NORMALS: Equal, round and reactive pupils present PUPIL: Yes Equal, round and reactive pupils present Neck/C-Spine: COMMON NORMALS: supple GENERAL: Yes normal visual inspection Resp: COMMON NORMALS: normal respiratory effort, No retractions, No use of accessory muscles and clear to auscultation bilaterally AUSCULTATION: clear to auscultation bilaterally Cardio: COMMON NORMALS: regular rate, regular rhythm, S1 normal heart sound present, S2 normal heart sound present, No gallops present (Cardio), No clicks present (Cardio), No murmurs present (Cardio) and Peripheral pulses 2+ throughout RATE: regular rate RHYTHM: regular rhythm HEART SOUNDS: S1 normal heart sound present and S2 normal heart sound present PERIPHERAL PULSES: Peripheral pulses 2+ throughout GI: COMMON NORMALS: Normal to inspection, nondistended, normoactive bowel sounds present, Soft to palpation, non-tender and no masses PALPATION: Yes Soft to palpation : COMMON NORMALS: Yes no CVA tenderness BLADDER/KIDNEY EXAM: Yes no CVA tenderness Back/Pelvis: COMMON NORMALS: no CVA tenderness Extremity: COMMON NORMALS: normal to inspection Neuro: COMMON NORMALS: patient oriented x3 and moves all extremities SENSORIUM/ORIENTATION: Yes alert Skin: GENERAL SKIN EXAM: dry skin Course Vital Signs: Vital signs: Vital Signs Temperature 98.5 F 05/04/21 01:36 Pulse Rate 84 05/04/21 04:19 Respiratory Rate 16 05/04/21 04:19 Blood Pressure 130/96 05/04/21 04:19 Pulse Oximetry 100 05/04/21 04:19 MDM - Chest Pain Medical Decision Making Patient is a 45-year-old female comes to the ED with chest pain via EMS. Past medical history of acid reflux and hypertension. While in route EMS gave patient nitro and 324 mg of aspirin. Chest pain started while she was laying down tonight at around 10 PM. Chest pain described as a sharp pain on the left side of chest. Denies any worsening or improving factors. Denies any cardiac history or any prior OR. Vitals are stable. Patient appears in no acute distress. The rest of exam is benign. First EKG showed normal sinus rhythm, 74 bpm, no ST segment elevation or depression seen. Chest x-ray showed borderline to mild cardiomegaly. First troponin level-6. The rest of the labs are pending. She was given some IV morphine here in the ED along with a GI cocktail. Patient care was handed off to Dr. Nice at the end of my shift. He will be taking over further care and management of patient here in the ED. Lab Data I reviewed the patient's lab results. : 05/04/21 01:38 05/04/21 01:38 Radiology Impressions Chest X-Ray 05/04/21 01:35 IMPRESSION: Borderline to mild cardiomegaly. Laboratory Results WBC 11.1 10^3/uL (4.0-10.0) H 05/04/21 01:38 RBC 5.19 10^6/uL (4.1-5.3) 05/04/21 01:38 Hgb 10.1 g/dL (11.5-15.3) L 05/04/21 01:38 Hct 34.6 % (37.0-47.0) L 05/04/21 01:38 MCV 66.7 fl (81-99) L 05/04/21 01:38 MCH 19.5 pg (28.0-34.0) L 05/04/21 01:38 MCHC 29.2 g/dL (30.0-36.0) L 05/04/21 01:38 RDW 16.8 % (12.1-15.1) H 05/04/21 01:38 Plt Count 316 10^3/cmm (130-400) 05/04/21 01:38 MPV 11.1 fL (7.4-10.4) H 05/04/21 01:38 Neut % (Auto) 56.0 % 05/04/21 01:38 Lymph % (Auto) 32.7 % 05/04/21 01:38 Tift % (Auto) 8.8 % 05/04/21 01:38 Eos % (Auto) 1.7 % 05/04/21 01:38 Baso % (Auto) 0.5 % 05/04/21 01:38 Neut # (Auto) 6.19 10^3/uL (1.8-7.7) 05/04/21 01:38 Lymph # (Auto) 3.6 10^3/uL (0.8-4.8) 05/04/21 01:38 Tift # (Auto) 1.0 10^3/uL (0.2-0.9) H 05/04/21 01:38 Eos # (Auto) 0.2 10^3/uL (0.0-0.8) 05/04/21 01:38 Baso # (Auto) 0.1 10^3/uL (0.0-0.1) 05/04/21 01:38 Nucleated RBC % (auto) 0 % 05/04/21 01:38 Nucleated RBCs # 0.0 /100WBC 05/04/21 01:38 Sodium 135 mmol/L (136-145) L 05/04/21 01:38 Potassium 4.0 mmol/L (3.5-5.1) 05/04/21 01:38 Chloride 100 mmol/L (98-107) 05/04/21 01:38 Carbon Dioxide 23 mmol/L (22-29) 05/04/21 01:38 Anion Gap 16.0 (5-19) 05/04/21 01:38 BUN 8 mg/dL (6-20) 05/04/21 01:38 Creatinine 0.8 mg/dL (0.5-0.9) 05/04/21 01:38 GFR Calculation 94.3 mL/min (90-130) 05/04/21 01:38 Glucose 94 mg/dL (65-115) 05/04/21 01:38 Calculated Osmolality 278 mOsm/kg (285-295) L 05/04/21 01:38 Calcium 9.4 mg/dL (8.5-10.5) 05/04/21 01:38 Total Bilirubin 0.3 mg/dL (0.15-1.2) 05/04/21 01:38 AST 13 U/L (0-32) 05/04/21 01:38 ALT 8 U/L (0-33) 05/04/21 01:38 Alkaline Phosphatase 75 IU/L (35-105) 05/04/21 01:38 Troponin T Baseline 6 ng/L (0-10) 05/04/21 01:38 Troponin T 120 Minute 6.00 ng/L (0-10) 05/04/21 03:28 Delta Troponin T 0 ABS# (0-10) 05/04/21 03:28 Total Protein 8.2 g/dL (6.6-8.7) 05/04/21 01:38 Albumin 4.3 g/dL (3.5-5.2) 05/04/21 01:38 Globulin 3.9 g/dL (1.3-4.6) 05/04/21 01:38 Lipase 16 U/L (13-60) 05/04/21 01:38 HCG, Qual Negative (Negative) 05/04/21 01:38 EKG Data EKG 1: EKG interpretation date: 05/04/21 EKG interpretation time: 01:45 Interpretation: Normal sinus rhythm, 74 bpm, no ST segment elevation or depression seen. Discharge Plan Discharge Patient Disposition: Home Clinical Impression: Chest pain Condition: Stable Prescriptions: No Action hydrocodone-acetaminophen 5-325 mg tablet 1 tab PO QID PRN (Reason: pain) 0RF metformin 500 mg tablet 500 mg PO DAILY 0RF metoprolol succinate 25 mg tablet extended release 24 hr 12.5 mg PO DAILY 0RF buspirone 10 mg tablet 20 mg PO BID Qty: 120 1RF Rx Instructions: Take 2 tablets by mouth every morning and evening olanzapine 7.5 mg tablet 7.5 mg PO BID Qty: 60 1RF Rx Instructions: Take one tablet by mouth every morning and at bedtime aspirin 81 mg tablet,delayed release (DR/EC) 81 mg PO DAILY 0RF pantoprazole 40 mg tablet,delayed release (DR/EC) 80 mg PO DAILY 0RF ibuprofen 800 mg tablet 800 mg PO Q8H PRN (Reason: pain) Qty: 20 0RF Medrol (Dennis) 4 mg tablets,dose pack See Rx Instructions .ROUTE .COMPLEX Qty: 21 0RF Rx Instructions: orally per package directions Carafate 1 gram tablet 1 g PO TID Qty: 30 0RF Discharge Orders: Discharge ED (Routine); Ordered 05/04/21 Ordered By: Schuyler Nice Referrals: Magalie Acevedo, FELT HOOKER [Primary Care Provider] - Discharge Diet: Usual diet Discharge Activity: Resume usual activity Patient Instructions: Chest Pain (ED), Paresthesia (ED), Opioid Safety Activity Restrictions/Additional Instructions: Thank you for visiting the emergency department. You were seen and evaluated for chest pain. The exact cause of your symptoms is unclear however does not appear to need inpatient management at this time. Based on your symptoms I do recommend outpatient further cardiac evaluation. I will message our test case developer for assistance with scheduling this. Please follow-up with your primary care provider. Please establish with a primary care provider if you do not have one currently. Please return to the emergency department for worsening symptoms or anything else that you are concerned about and feel needs emergency department evaluation. Sign Out Sign Out Data: Patient Sign Out occurred on 05/04/21 at 03:10. Patient's care was discussed, and care was transferred from to Schuyler Nice MD. Coding Level of Care Code ED Asphalt Surface Heater Operator for Chg Fwd Exam Comprehensive Documented by User: Schuyler Nice MD 05/06/21 09:02 HPI - Chest Pain General: Chief Complaint: Chest Pain Stated Complaint: CP Time Seen by Provider: 05/04/21 01:37 [facility] ED PFSH: Medical History Psychiatric care Schizoaffective disorder, bipolar type Social History Smoking and tobacco status: current some day smoker cigarettes Years cigarettes smoked: 30 Quit status (tobacco): considering quitting Second hand smoke exposure: Yes Course Vital Signs: Vital signs: Vital Signs Temperature 98.5 F 05/04/21 01:36 Pulse Rate 84 05/04/21 04:19 Respiratory Rate 16 05/04/21 04:19 Blood Pressure 130/96 05/04/21 04:19 Pulse Oximetry 100 05/04/21 04:19 MDM - Chest Pain Medical Decision Making Patient is a 45-year-old female comes to the ED with chest pain via EMS. Past medical history of acid reflux and hypertension. While in route EMS gave patient nitro and 324 mg of aspirin. Chest pain started while she was laying down tonight at around 10 PM. Chest pain described as a sharp pain on the left side of chest. Denies any worsening or improving factors. Denies any cardiac history or any prior OR. Vitals are stable. Patient appears in no acute distress. The rest of exam is benign. First EKG showed normal sinus rhythm, 74 bpm, no ST segment elevation or depression seen. Chest x-ray showed borderline to mild cardiomegaly. First troponin level-6. The rest of the labs are pending. She was given some IV morphine here in the ED along with a GI cocktail. Patient care was handed off to Dr. Nice at the end of my shift. He will be taking over further care and management of patient here in the ED. Patient care was handed off from TASIA Garcia to myself pending completion of ED evaluation. I personally saw and evaluated the patient and I did discuss the case with TASIA Garcia. I have reviewed the documentation and agree as documented. Upon reassessment patient she still does have some pain and additional analgesia was ordered. She reports that she has a history of similar arm discomfort/numbness and has previously worn braces though they have not helped, this is not a new problem. I have reviewed laboratory studies and imaging studies. Delta troponin is negative. I did inform the patient of her microcytic anemia. I believe that patient is low risk by heart score though does require further evaluation. I discussed heart score reasoning and risk ratification with the patient. I discussed results of ED evaluation, follow-up plan, and symptom treatments as appropriate. Patient verbalized understanding felt safe for discharge. Discharged in satisfactory condition. Schuyler Nice MD Emergency Medicine Lab Data : 05/04/21 01:38 05/04/21 01:38 Radiology Impressions Chest X-Ray 05/04/21 01:35 IMPRESSION: Borderline to mild cardiomegaly. Laboratory Results WBC 11.1 10^3/uL (4.0-10.0) H 05/04/21 01:38 RBC 5.19 10^6/uL (4.1-5.3) 05/04/21 01:38 Hgb 10.1 g/dL (11.5-15.3) L 05/04/21 01:38 Hct 34.6 % (37.0-47.0) L 05/04/21 01:38 MCV 66.7 fl (81-99) L 05/04/21 01:38 MCH 19.5 pg (28.0-34.0) L 05/04/21 01:38 MCHC 29.2 g/dL (30.0-36.0) L 05/04/21 01:38 RDW 16.8 % (12.1-15.1) H 05/04/21 01:38 Plt Count 316 10^3/cmm (130-400) 05/04/21 01:38 MPV 11.1 fL (7.4-10.4) H 05/04/21 01:38 Neut % (Auto) 56.0 % 05/04/21 01:38 Lymph % (Auto) 32.7 % 05/04/21 01:38 Tift % (Auto) 8.8 % 05/04/21 01:38 Eos % (Auto) 1.7 % 05/04/21 01:38 Baso % (Auto) 0.5 % 05/04/21 01:38 Neut # (Auto) 6.19 10^3/uL (1.8-7.7) 05/04/21 01:38 Lymph # (Auto) 3.6 10^3/uL (0.8-4.8) 05/04/21 01:38 Tift # (Auto) 1.0 10^3/uL (0.2-0.9) H 05/04/21 01:38 Eos # (Auto) 0.2 10^3/uL (0.0-0.8) 05/04/21 01:38 Baso # (Auto) 0.1 10^3/uL (0.0-0.1) 05/04/21 01:38 Nucleated RBC % (auto) 0 % 05/04/21 01:38 Nucleated RBCs # 0.0 /100WBC 05/04/21 01:38 Sodium 135 mmol/L (136-145) L 05/04/21 01:38 Potassium 4.0 mmol/L (3.5-5.1) 05/04/21 01:38 Chloride 100 mmol/L (98-107) 05/04/21 01:38 Carbon Dioxide 23 mmol/L (22-29) 05/04/21 01:38 Anion Gap 16.0 (5-19) 05/04/21 01:38 BUN 8 mg/dL (6-20) 05/04/21 01:38 Creatinine 0.8 mg/dL (0.5-0.9) 05/04/21 01:38 GFR Calculation 94.3 mL/min (90-130) 05/04/21 01:38 Glucose 94 mg/dL (65-115) 05/04/21 01:38 Calculated Osmolality 278 mOsm/kg (285-295) L 05/04/21 01:38 Calcium 9.4 mg/dL (8.5-10.5) 05/04/21 01:38 Total Bilirubin 0.3 mg/dL (0.15-1.2) 05/04/21 01:38 AST 13 U/L (0-32) 05/04/21 01:38 ALT 8 U/L (0-33) 05/04/21 01:38 Alkaline Phosphatase 75 IU/L (35-105) 05/04/21 01:38 Troponin T Baseline 6 ng/L (0-10) 05/04/21 01:38 Troponin T 120 Minute 6.00 ng/L (0-10) 05/04/21 03:28 Delta Troponin T 0 ABS# (0-10) 05/04/21 03:28 Total Protein 8.2 g/dL (6.6-8.7) 05/04/21 01:38 Albumin 4.3 g/dL (3.5-5.2) 05/04/21 01:38 Globulin 3.9 g/dL (1.3-4.6) 05/04/21 01:38 Lipase 16 U/L (13-60) 05/04/21 01:38 HCG, Qual Negative (Negative) 05/04/21 01:38 Discharge Plan Discharge Patient Disposition: Home Clinical Impression: Chest pain Condition: Stable Prescriptions: No Action hydrocodone-acetaminophen 5-325 mg tablet 1 tab PO QID PRN (Reason: pain) 0RF metformin 500 mg tablet 500 mg PO DAILY 0RF metoprolol succinate 25 mg tablet extended release 24 hr 12.5 mg PO DAILY 0RF buspirone 10 mg tablet 20 mg PO BID Qty: 120 1RF Rx Instructions: Take 2 tablets by mouth every morning and evening olanzapine 7.5 mg tablet 7.5 mg PO BID Qty: 60 1RF Rx Instructions: Take one tablet by mouth every morning and at bedtime aspirin 81 mg tablet,delayed release (DR/EC) 81 mg PO DAILY 0RF pantoprazole 40 mg tablet,delayed release (DR/EC) 80 mg PO DAILY 0RF ibuprofen 800 mg tablet 800 mg PO Q8H PRN (Reason: pain) Qty: 20 0RF Medrol (Dennis) 4 mg tablets,dose pack See Rx Instructions .ROUTE .COMPLEX Qty: 21 0RF Rx Instructions: orally per package directions Carafate 1 gram tablet 1 g PO TID Qty: 30 0RF Discharge Orders: Discharge ED (Routine); Ordered 05/04/21 Ordered By: Schuyler Nice Referrals: Magalie Acevedo FELT HOOKER [Primary Care Provider] - Discharge Diet: Usual diet Discharge Activity: Resume usual activity Patient Instructions: Chest Pain (ED), Paresthesia (ED), Opioid Safety Activity Restrictions/Additional Instructions: Thank you for visiting the emergency department. You were seen and evaluated for chest pain. The exact cause of your symptoms is unclear however does not appear to need inpatient management at this time. Based on your symptoms I do recommend outpatient further cardiac evaluation. I will message our test case developer for assistance with scheduling this. Please follow-up with your primary care provider. Please establish with a primary care provider if you do not have one currently. Please return to the emergency department for worsening symptoms or anything else that you are concerned about and feel needs emergency department evaluation. Sign Out Sign Out Data: Patient Sign Out occurred on 05/04/21 at 03:10. Patient's care was discussed, and care was transferred from to Schuyler Nice MD. Coding Level of Care Code ED Asphalt Surface Heater Operator for Bruce Davis Exam Comprehensive
[2021-05-04 02:01] VITALS: RESP 21; O2SAT 98
[2021-05-04] MEDS: morphine 4 mg/mL SDV 1 mL IVP ×2 (02:01→04:18)
[2021-05-04] MEDS: ondansetron 2 mg/ML SDV 2 mL 4 MG IVP (02:01)
[2021-05-04 02:02] VITALS: BP 122/87; PULSE 74; RESP 18; O2SAT 98
[2021-05-04 02:05] LABS: HCG, Serum Qual Negative (Negative)
[2021-05-04 02:10] LABS: Alanine Aminotransferase 8 U/L (0-33); Albumin Level 4.3 g/dL (3.5-5.2); Alkaline Phosphatase 75 IU/L (35-105); Aspartate Amino Transferase 13 U/L (0-32); Blood Urea Nitrogen 8 mg/dL (6-20); Calcium 9.4 mg/dL (8.5-10.5); Carbon Dioxide 23 mmol/L (22-29); Chloride 100 mmol/L (98-107); Globulin 3.9 g/dL (1.3-4.6); Glomerular Filtration Rate 94.3 mL/min (90-130); Glucose 94 mg/dL (65-115); Lipase 16 U/L (13-60); Osmolality Calculated 278 mOsm/kg (285-295); Sodium 135 mmol/L (136-145); Total Bilirubin 0.3 mg/dL (0.15-1.2); Total Protein 8.2 g/dL (6.6-8.7); Troponin(5th) Baseline 6 ng/L (0-10)
[2021-05-04 02:18] LABS: Slide Review Slide Review Perform
[2021-05-04] MEDS: lidocaine 2% viscous 15 ML, aluminum-mag hydrox-simethicon 30 ML, sucralfate oral liq 1 GM PO (02:38)
[2021-05-04 04:04] LABS: Troponin 5 2HR Delta 0 ABS# (0-10)
[2021-05-04 04:18] VITALS: RESP 16; O2SAT 99
[2021-05-04 04:19] VITALS: BP 130/96; PULSE 84; RESP 16; O2SAT 100
--- NOTE | 2021-05-10 13:42 | DCPLANNER ---
Addendum entered by Zakiya Hamlin 10/11/21 14:23: Patient did attend stress test. Addendum entered by Zakiya Hamlin 07/15/21 19:37: Patient had a follow up appointment scheduled for 06.15.21 for an echo - patient did attend appointment. Patient has an outpatient stress test scheduled for Monday, July 19, 2021 at 10:45, centralized scheduling will call patient with appointment information. Original Note: manager it security had message to schedule an outpatient echo cardiogram and an outpatient stress test. manager it security faxed signed order to centralized scheduling, who will call patient with appointment information.
== END 2021-05-04 04:49 | disposition home or self-care (01) ==
PROVIDERS: Physician Assistant; Emergency Provider Emergency Medicine; PCP Nurse Practitioner Family
DX: R07.9 Chest pain, unspecified (principal); Z79.82 Long term (current) use of aspirin; Z79.84 Long term (current) use of oral hypoglycemic drugs; F17.210 Nicotine dependence, cigarettes, uncomplicated
CPT/HCPCS: 71045; 80053; 83690; 84484; 84703; 85025; 93005; 96374; 96375; 96376; 99284; J2270; J2405

== ENCOUNTER 2021-06-15 13:05 | Outpatient (CLI) | payer MEDICARE, MEDICAID, SELFPAY ==
--- NOTE | 2021-06-15 13:21 | USCV_ITS ---
Vijay Galindo Age: 45 Gender: F : 1975 Exam Date: 06/15/2021 13:40 Ordering Phys: Schuyler Nice MD Technologist: Milla Hayes Exam Location: [facility] [place] Indication: CHEST PAIN BP: 125 / 75 HR: 69 Rhythm: Sinus Technical Quality: Adequate MEASUREMENTS (Male / Female) Normal Values 2D ECHO LV Diastolic Diameter PLAX 4.8 cm 4.2 - 5.9 / 3.9 - 5.3 cm LV Systolic Diameter PLAX 2.6 cm IVS Diastolic Thickness 1.1 cm 0.6 - 1.0 / 0.6 - 0.9 cm IVS Systolic Thickness 1.7 cm LVPW Diastolic Thickness 1.1 cm 0.6 - 1.0 / 0.6 - 0.9 cm LVPW Systolic Thickness 2.0 cm LVOT Diameter 2.0 cm LV Ejection Fraction 2D Teich 78.2 % LV Ejection Fraction MOD 2C 70.4 % LV Ejection Fraction 2C AL 68.5 % LA Diameter 2.9 cm LA Width 2.7 cm LA Height 4.8 cm RA Width 3.2 cm RA Height 3.7 cm Aorta at Sinotubular Diameter 2.2 cm M-MODE Aortic Annulus Diameter 2.8 cm LA Ao Ratio MM 0.9 MV E Point Septal Separation 0.4 cm DOPPLER AV Peak Velocity 154.0 cm/s LVOT Peak Velocity 96.3 cm/s AV Area Cont Eq vti 1.8 cm squared AV Area Cont Eq pk 2.0 cm squared MV Peak Velocity 97.0 cm/s MV Area PHT 3.1 cm squared Mitral E to A Ratio 1.0 MV E' Velocity 44.0 cm/s Mitral E to MV E' Ratio 6.7 Mitral E to LV E' Lateral Ratio 6.8 Mitral E to LV E' Septal Ratio 6.5 TR Peak Velocity 262.8 cm/s TR Peak Gradient 27.6 mmHg TR Mean Velocity 208.1 cm/s TR Mean Gradient 18.6 mmHg TR Velocity Time Integral 76.3 cm TV Peak E Velocity 44.0 cm/s Right Atrial Pressure 3.0 mmHg Pulmonary Artery Systolic Pressu 30.6 mmHg PV Peak Velocity 82.0 cm/s RV Acceleration Time 0.1 s RV Ejection Time 0.3 s RV AcT/ET 0.2 Medications Complications Proc. Components FINDINGS Left Ventricle Normal left ventricular size. LV systolic function is normal with EF of 55-60%. No regional wall motion abnormalities. Normal diastolic filling pattern. Right Ventricle The right ventricle is normal in size and function. Right Atrium The right atrium is normal in size. Left Atrium The left atrium is normal in size. LA Appendage The LA appendage is normal. IA Septum The interatrial septum is normal. Mitral Valve Structurally normal mitral valve without significant stenosis or prolapse. There is mild mitral regurgitation. Aortic Valve Structurally normal aortic valve without significant sclerosis or stenosis. There is no aortic regurgitation. Tricuspid Valve Structurally normal tricuspid valve without significant stenosis. Trace tricuspid regurgitation. Insufficient TR jet to calculate RVSP Pulmonic Valve Structurally normal pulmonic valve without significant stenosis. There is trace pulmonic regurgitation. Pericardium Normal pericardium without effusion. Aorta Normal ascending aorta dimension. CONCLUSIONS LV systolic function is normal with EF of 55-60% Normal diastolic function Mild mitral regurgitation Trace tricuspid regurgitation Trace pulmonic regurgitation No comparison studies are available Spencer Kate MD (Electronically Signed) Final Date: 15 June 2021 18:22 S
== END 2021-06-15 13:06 | disposition home or self-care (01) ==
LOC: RAD 13:07
PROVIDERS: PCP Nurse Practitioner Family; Visit Provider Emergency Medicine
DX: R07.9 Chest pain, unspecified (principal); I34.0 Nonrheumatic mitral (valve) insufficiency
CPT/HCPCS: 93306

== ENCOUNTER → 2021-06-16 08:32 | Outpatient (BNVA) | payer MEDICARE, MEDICAID, SELFPAY | PROVIDERS: PCP Nurse Practitioner Family; Visit Provider Nurse Practitioner Psychiatric/Mental Health | DX: F25.0 Schizoaffective disorder, bipolar type (principal) | CPT/HCPCS: 99213 ==

== ENCOUNTER 2021-07-19 07:55 | Outpatient (CLI) | payer MEDICARE, MEDICAID, SELFPAY ==
[2021-07-19 08:19] VITALS: BMI 38.6
--- NOTE | 2021-07-19 08:35 | NMCV_ITS ---
NM lam perf SPECT r/s* [id number] Vijay Galindo Age: 46 Gender: F : 1975 Exam Date: 07/19/2021 08:35 Ordering Phys: Schuyler Nice MD Technologist: NICOLAS Garcia Exam Location: [facility] Indications: CHEST PAIN STRESS TEST Please see separate stress test report in [facility] for full findings IMAGE PROTOCOL Rest/Stress 1 Lexiscan Day Radiopharmaceutical Dose (mCi) Administration Site Administered by Rest: Tc-99m 10.9 IV NICOLAS Garcia Sestamibi Stress:Tc-99m 32.6 IV NICOLAS Cassidy Sestamibi Rest: 19-Jul-2021 60 Discovery 630 Stress: 19-Jul-2021 30 Discovery 630 0.4mg Lexiscan. Images obtained in supine and prone position. SPECT RESULTS Technical Quality: Excellent Raw Data Analysis: Normal Image Corrections: No attenuation or motion correction applied Summed Stress Score: 7 Summed Rest Score: 7 Summed Difference Score: 1 PERFUSION FINDINGS Mild to moderate area of moderately decreased tracer uptake was noted in the basal, mid and apical inferior, mid inferolateral wall regions. SAJADI reversibility was noted in the mid inferior wall region. FUNCTIONAL RESULTS (calculated via Gated SPECT) Stress Image LV EF (%): 73 Stress EDV (mL):88 TID: 1.02 Stress ESV (mL):24 FUNCTIONAL FINDINGS: Segmental wall motion analysis revealing no gross wall motion abnormalities IMPRESSIONS 1. Myocardial perfusion imaging revealing a small to moderate area of persistent decreased tracer uptake in the inferior and inferolateral region with some reversibility in the mid inferior region suggesting myocardial scarring in the distribution the right coronary artery/circumflex artery with a very small area of possible lopez-infarction ischemia, mostly in the distribution of the right coronary artery. 2. Normal LV ejection fraction 73%. 3. LV wall motion analysis revealing no gross wall motion abnormalities 4. Normal LV volume No similar previous studies are available for comparison Dr Michael Rodríguez MD [facility] (Electronically Signed) Final Date: 19 Jul 2021 13:31 S
--- NOTE | 2021-07-19 08:35 | ECG_ITS ---
[facility] Test Date: 2021-07-19 Pat Name: Vijay Galindo Department: Room: Gender: Female [employer] Faculty Member: Agustina Garvin : 1975 Requested By: Schuyler Nice Order Number: [id number] Linda MD: Michael Rodríguez M.D. Interpretive Statements NAME OF STUDY: LEXISCAN SESTAMIBI STRESS TEST INDICATION: Chest Pain, PROCEDURE: At the baseline, the EKG revealed sinus rhythm with a short TX interval. Nonspecific ST changes in the inferior leads. The baseline blood pressure was 115/93 mm Hg with a heart rate of 63 beats/min. Lexiscan was infused over a period of 20 seconds. A total of 0.4 milligrams of Lexiscan was infused. The stress phase was continued for a total of 5 minutes. Heart rate at the end of the stress phase was 99 with a blood pressure 116/92. The EKG at the peak infusion revealed diffuse nonspecific ST-T changes. Sestamibi was injected 20 seconds after the Lexiscan infusion. Blood pressure at the end of the recovery phase was (not done)with a heart rate of 96 per minute. The EKG during the recovery phase, reported almost back to the baseline CONCLUSION: 1. Diffuse nonspecific ST-T changes of the Lexiscan infusion 2. No LexiScan induced chest pain or cardiac arrhythmia 3. Normal blood pressure and heart rate response 4. Sestamibi/sestamibi perfusion scan pending; see separate report. Electronically Signed On 07-22-2021 12:15:25 CDT by Michael Rodríguez M.D. [id number]
[2021-07-19 10:36] VITALS: BP 113/91; PULSE 97
[2021-07-19] MEDS: regadenoson 0.4 Mg/5 ml Syringe IVP (10:39)
== END 2021-07-19 07:56 | disposition home or self-care (01) ==
LOC: CDL 08:01
PROVIDERS: PCP Nurse Practitioner Family; Visit Provider Emergency Medicine
DX: R07.9 Chest pain, unspecified (principal)
CPT/HCPCS: 78452; 93017; A9500; J2785

== ENCOUNTER 2021-07-22 08:51 | Outpatient (CLI) | payer MEDICARE, MEDICAID, SELFPAY ==
--- NOTE | 2021-07-22 09:02 | MM_ITS ---
WS: [id number] BILATERAL 3D TOMOSYNTHESIS DIGITAL SCREENING MAMMOGRAPHY WITH CAD CLINICAL INFORMATION: SCREENING HISTORY: Screening mammogram. No current complaints. COMPARISON: None. TECHNIQUE: Bilateral CC and MLO views. FINDINGS: Scattered fibroglandular densities bilaterally. LEFT breast smaller than the RIGHT. A few incidental punctate calcifications. No suspicious focal mass, asymmetry, calcifications, or architectural distor tion. No evidence of malignancy. MM/[place] [id number] IMPRESSION: BI-RADS: 2-Benign FOLLOW UP: 1 Year Follow-up Recommend return to annual screening mammography.
== END 2021-07-22 08:52 | disposition home or self-care (01) ==
PROVIDERS: PCP Nurse Practitioner Family; Visit Provider Nurse Practitioner Family
DX: Z12.31 Encounter for screening mammogram for malignant neoplasm of breast (principal)
CPT/HCPCS: 77063; 77067

== ENCOUNTER 2021-10-27 13:12 | Emergency (ER) | payer MEDICARE, MEDICAID, SELFPAY ==
[2021-10-27 13:20] VITALS: BP 114/82; PULSE 86; RESP 16; TEMP 36.4; O2SAT 100; BMI 36.6
--- NOTE | 2021-10-27 13:41 | W.ED.NAVMDI ---
HPI - Nausea/Vomiting/Diarrhea General: Chief complaint: Upper Respiratory Infection Stated complaint: COVID exposure Time Seen by Provider: 10/27/21 13:23 History of Present Illness: Patient is a 46-year-old female who is in today for exposure to COVID-19. She reports that last her children were diagnosed with COVID-19. She reports that on Sunday she started having fever, chills, nasal congestion and drainage. She reports that that lasted approximately 3 days and then has subsequently resolved. She reports that yesterday and today she has had a little bit of nausea but has not had any vomiting. She reports that she has had a couple loose stools that is always worse if she drinks milk. She denies fever for 3 days now. She reports that she knows that she is okay she is just concerned Associated nausea: Yes Associated symtoms: Reports anxiety (Patient reports that she is just anxious. ) and nausea; Denies change in vision, chest pain, dysuria or palpitations Review of Systems Const: Denies: fever(s), chills or body aches Eyes: Denies: change in vision or blurry vision ENMT: Reports: nasal congestion and post nasal drip; Denies: throat pain Card: Denies: chest pain, palpitations or irregular heart rhythm Resp: Denies: dyspnea, productive cough, non-productive cough or wheezing GI: Reports: nausea and diarrhea (2 loose stools today.); Denies: abdominal pain, vomiting, hematochezia or melena : Denies: flank pain, difficulty voiding, dysuria, urinary frequency, urinary urgency or urinary hesitancy Psych: Reports: anxiety (Patient reports that she is just anxious. ) PFSH ED PFSH: Medical History Psychiatric care Schizoaffective disorder, bipolar type Social History Smoking and tobacco status: current some day smoker cigarettes Years cigarettes smoked: 30 Quit status (tobacco): considering quitting Second hand smoke exposure: Yes Female Reproductive History: Date of last menstrual period: 10/27/21 Physical Exam Const: COMMON NORMALS: no acute distress, patient oriented x3 and alert HENMT: COMMON NORMALS: EAC's normal, TM's normal bilaterally, Normal external nose present, Normal nasal mucous membranes and turbinates present, moist oral mucous membranes and oropharynx normal (Moderate postnasal drainage) NOSE: Normal external nose present and Normal nasal mucous membranes and turbinates present EXTERNAL AUDITORY CANAL: EAC's normal TYMPANIC MEMBRANE: TM's normal bilaterally Resp: COMMON NORMALS: normal respiratory effort, No retractions, No use of accessory muscles and clear to auscultation bilaterally AUSCULTATION: clear to auscultation bilaterally Cardio: COMMON NORMALS: regular rate, regular rhythm, S1 normal heart sound present and S2 normal heart sound present RATE: regular rate RHYTHM: regular rhythm HEART SOUNDS: S1 normal heart sound present and S2 normal heart sound present GI: COMMON NORMALS: Normal to inspection, nondistended, normoactive bowel sounds present, Soft to palpation, non-tender, No hepatosplenomegaly present, no masses and no bruits PALPATION: Yes Soft to palpation and Yes No hepatosplenomegaly present : COMMON NORMALS: Yes no CVA tenderness BLADDER/KIDNEY EXAM: Yes no CVA tenderness Back/Pelvis: COMMON NORMALS: no CVA tenderness Neuro: COMMON NORMALS: patient oriented x3 SENSORIUM/ORIENTATION: Yes alert Psych: COMMON NORMALS: mental status grossly normal Course Vital Signs: Vital signs: Vital Signs Temperature 97.6 F 10/27/21 13:20 Pulse Rate 86 10/27/21 13:20 Respiratory Rate 16 10/27/21 13:20 Blood Pressure 114/82 10/27/21 13:20 Pulse Oximetry 100 10/27/21 13:20 Oxygen Delivery Me thod 10/27/21 13:20 MDM - Nausea/Vomiting/Diarrhea Medical Decision Making Patient is in today after being exposed to COVID-19 last week. She reports that she has had a little bit of nausea without vomiting today and 2 loose stools. She reports that her fever and chills have been gone for 3 days at least. She states that she knows that she is probably fine but she is just worried. Physical examination shows normal vital signs. Abdomen is soft nontender. Patient does have a little bit of nasal congestion and postnasal drainage. I had a lengthy discussion with patient regarding her symptoms. It sounds like she may have had COVID giving that both of her children had this last week and then she developed similar symptoms. It does sound like her COVID symptoms have resolved. She is currently having some nausea without vomiting which I suspect is from the large amount of postnasal drainage the patient has. He discussed that versus a viral illness. We discussed conservative treatments at home increasing oral fluid intake. Rest. We discussed a brat diet. Zofran is sent home to use as needed for the next 24 hours. Patient is to follow-up with her primary care provider next week. Return to the ER for any new or worsening symptoms, fever, chills, abdominal pain, increased vomiting, inability to hold down oral fluids. No COVID test is done today as patient is well beyond her exposure date and has already had a febrile illness with resolution. Discharge Plan Discharge Patient Disposition: Home Clinical Impression: Nausea, Close exposure to COVID-19 virus, URI (upper respiratory infection) Condition: Stable Prescriptions: New ondansetron 4 mg film 4 mg PO Q8H PRN (Reason: nausea and vomiting) Qty: 6 0RF No Action metformin 500 mg tablet 500 mg PO DAILY aspirin 81 mg tablet,delayed release (DR/EC) 81 mg PO DAILY pantoprazole 40 mg tablet,delayed release (DR/EC) 80 mg PO DAILY hydrocodone-acetaminophen 7.5-325 mg tablet 1 tab PO TID PRN (Reason: pain) buspirone 10 mg tablet 20 mg PO BID Qty: 120 1RF Rx Instructions: Take 2 tablets by mouth every morning and evening olanzapine 7.5 mg tablet 7.5 mg PO .q hs Qty: 30 1RF Rx Instructions: Take one tablet daily at bedtime ibuprofen 800 mg tablet 800 mg PO Q8H PRN (Reason: pain) Qty: 20 0RF Carafate 1 gram tablet 1 g PO TID Qty: 30 0RF Discharge Orders: Discharge ED (Routine); Ordered 10/27/21 Ordered By: Agustina Milian Referrals: Magalie Acevedo FNP [Primary Care Provider] - Discharge Diet: Advance as tolerated Discharge Activity: Increase activity as tolerated Patient Instructions: Ondansetron (By mouth), Nausea and Vomiting - Oncology Activity Restrictions/Additional Instructions: Rest, increase oral fluids, use Zofran as prescribed as needed for nausea. Make sure that you are eating and monitoring for hypoglycemia (low blood sugar). Follow-up with your primary care provider next week. Return to the ER for any new or worsening symptoms, signs of low blood sugar including sweating, dizziness, confusion, weakness, increased nausea and vomiting despite the medication, abdominal pain, fever, chills. Coding Level of Care Code ED Prisoner Classification Interviewer for Bruce Davis
== END 2021-10-27 14:11 | disposition home or self-care (01) ==
PROVIDERS: Emergency Provider Nurse Practitioner Family; PCP Nurse Practitioner Family
DX: J06.9 Acute upper respiratory infection, unspecified (principal); R11.0 Nausea; Z20.822 Contact with and (suspected) exposure to COVID-19; F17.210 Nicotine dependence, cigarettes, uncomplicated; F41.9 Anxiety disorder, unspecified
CPT/HCPCS: 99283

== ENCOUNTER 2021-10-27 21:24 | Emergency (ER) | payer MEDICARE, MEDICAID, SELFPAY ==
[2021-10-27 21:25] VITALS: BMI 37.4
--- NOTE | 2021-10-27 21:27 | W.ED.CHESTPA ---
Documented by User: Schuyler Nice MD 11/11/21 01:01 HPI - Chest Pain General: Chief Complaint: Chest Pain Stated Complaint: CHEST PAIN Time Seen by Provider: 10/27/21 21:26 History of Present Illness: Ms. Galindo is a 46-year-old lady with history of psychiatric disorder presents to the emergency department due to chest pain. Onset of pain was approximately 1 hours prior to arrival. She endorses recent history with positive COVID exposure of COVID-like symptoms however did not have chest pain with that she typically just a cough and other generalized symptoms. She was making dinner earlier and began having pressure in the middle of her chest without other typical cardiac features. Intensity symptoms at worst moderate to severe and improved with nitroglycerin. Denies frequent history of similar in the past. Former smoker. No family positive history for early coronary artery disease. No other specific changes in health, exacerbating, or alleviating factors identified. Onset (ago): hour(s) Timing of current episode: now resolved Prior episodes: No Onset: during exertion Pain location: substernal Pain radiation: none Quality: heaviness Relieving factors: nothing Exacerbating factors: nothing Context: recent illness Treatment prior to arrival: aspirin and nitroglycerin Review of Systems General: Reports: 10 or more systems reviewed and unremarkable except in HPI and below PFSH ED PFSH: Medical History Psychiatric care Schizoaffective disorder, bipolar type Social History Smoking and tobacco status: current some day smoker cigarettes Years cigarettes smoked: 30 Quit status (tobacco): considering quitting Second hand smoke exposure: Yes Female Reproductive History: Date of last menstrual period: 10/27/21 Physical Exam Const: COMMON NORMALS: alert GENERAL APPEARANCE: cooperative and well developed HENMT: COMMON NORMALS: normocephalic and atraumatic HEAD & SCALP: normocephalic and atraumatic Eye: COMMON NORMALS: conjunctivae normal CONJUNCTIVA: Yes conjunctivae normal SCLERA: sclerae normal Neck/C-Spine: COMMON NORMALS: supple GENERAL: Yes trachea midline Resp: COMMON NORMALS: clear to auscultation bilaterally EFFORT & INSPECTION: Yes able to speak in complete sentences AUSCULTATION: clear to auscultation bilaterally Cardio: COMMON NORMALS: regular rate and regular rhythm RATE: regular rate RHYTHM: regular rhythm GI: COMMON NORMALS: Soft to palpation PALPATION: Yes Soft to palpation and No Tenderness to palpation present (GI) Extremity: GENERAL: Yes normal exam except as noted and No edema Neuro: COMMON NORMALS: moves all extremities SENSORIUM/ORIENTATION: Yes alert and No Orientation impaired Psych: COMMON NORMALS: mental status grossly normal and Normal thought process present THOUGHT PROCESS: Normal thought process present Course Vital Signs: Vital signs: Vital Signs Temperature 97.4 F L 10/27/21 21:29 Pulse Rate 79 10/27/21 21:29 Respiratory Rate 16 10/27/21 21:29 Blood Pressure 117/82 10/27/21 21:29 Pulse Oximetry 97 10/27/21 21:29 Oxygen Delivery Me thod 10/27/21 21:29 MDM - Chest Pain Medical Decision Making 46-year-old lady presenting with atypical chest pain in the context of likely COVID. EKG with sinus rhythm and no STEMI. No leukocytosis, microcytic anemia appears similar, mild evidence of dehydration. COVID-positive. Chest x-ray with no lobar consolidation or pneumothorax. Handed off to ED physician Dr. Rico pending 2-hour troponin with likely plan for discharge. Patient presents with chest pain atypical in nature her troponins here are negative it could be due to her COVID she did test positive COVID she is to follow-up PCP and return if worsening. Medical Records I reviewed the patient's medical records. Lab Data I reviewed the patient's lab results. : 10/27/21 21:35 10/27/21 21:35 Radiology Impressions Chest X-Ray 10/27/21 21:31 IMPRESSION: No acute findings. Laboratory Results WBC 8.6 10^3/uL (4.0-10.0) 10/27/21 21:35 RBC 5.46 10^6/uL (4.1-5.3) H 10/27/21 21:35 Hgb 10.7 g/dL (11.5-15.3) L 10/27/21 21:35 Hct 36.5 % (37.0-47.0) L 10/27/21 21:35 MCV 66.8 fl (81-99) L 10/27/21 21:35 MCH 19.6 pg (28.0-34.0) L 10/27/21 21:35 MCHC 29.3 g/dL (30.0-36.0) L 10/27/21 21:35 RDW 18.6 % (12.1-15.1) H 10/27/21 21:35 Plt Count 290 10^3/cmm (130-400) 10/27/21 21:35 MPV 14.0 fL (7.4-10.4) H 10/27/21 21:35 Neut % (Auto) 53.4 % 10/27/21 21:35 Lymph % (Auto) 35.0 % 10/27/21 21:35 Will % (Auto) 8.9 % 10/27/21 21:35 Eos % (Auto) 2.0 % 10/27/21 21:35 Baso % (Auto) 0.2 % 10/27/21 21:35 Neut # (Auto) 4.57 10^3/uL (1.8-7.7) 10/27/21 21:35 Lymph # (Auto) 3.0 10^3/uL (0.8-4.8) 10/27/21 21:35 Will # (Auto) 0.8 10^3/uL (0.2-0.9) 10/27/21 21:35 Eos # (Auto) 0.2 10^3/uL (0.0-0.8) 10/27/21 21:35 Baso # (Auto) 0.0 10^3/uL (0.0-0.1) 10/27/21 21:35 Nucleated RBC % (auto) 0 % 10/27/21 21:35 Nucleated RBCs # 0.0 /100WBC 10/27/21 21:35 Sodium 132 mmol/L (136-145) L 10/27/21 21:35 Potassium 4.6 mmol/L (3.5-5.1) 10/27/21 21:35 Chloride 97 mmol/L (98-107) L 10/27/21 21:35 Carbon Dioxide 24 mmol/L (22-29) 10/27/21 21:35 Anion Gap 15.6 (5-19) 10/27/21 21:35 BUN 11 mg/dL (6-20) 10/27/21 21:35 Creatinine 0.7 mg/dL (0.5-0.9) 10/27/21 21:35 GFR Calculation 109.5 mL/min (90-130) 10/27/21 21:35 Glucose 88 mg/dL (65-115) 10/27/21 21:35 Calculated Osmolality 273 mOsm/kg (285-295) L 10/27/21 21:35 Calcium 8.7 mg/dL (8.5-10.5) 10/27/21 21:35 Total Bilirubin 0.2 mg/dL (0.15-1.2) 10/27/21 21:35 AST 13 U/L (0-32) 10/27/21 21:35 ALT 13 U/L (0-33) 10/27/21 21:35 Alkaline Phosphatase 82 U/L (35-105) 10/27/21 21:35 Troponin T Baseline 6 ng/L (0-10) 10/27/21 21:35 Troponin T 120 Minute 6.00 ng/L (0-10) 10/27/21 23:28 Delta Troponin T 0 ABS# (0-10) 10/27/21 23:28 NT-Pro-B Natriuret Pep 7 pg/mL (0-125) 10/27/21 21:35 Total Protein 7.6 g/dL (6.6-8.7) 10/27/21 21:35 Albumin 3.8 g/dL (3.5-5.2) 10/27/21 21:35 Globulin 3.8 g/dL (1.3-4.6) 10/27/21 21:35 Lipase 15 U/L (13-60) 10/27/21 21:35 SARS-CoV-2 Ag (Rapid) Positive (Negative) H 10/27/21 22:03 Discharge Plan Discharge Patient Disposition: Home Clinical Impression: Chest pain, Microcytic anemia, Mild dehydration, COVID-19 Condition: Stable Prescriptions: No Action metformin 500 mg tablet 500 mg PO DAILY aspirin 81 mg tablet,delayed release (DR/EC) 81 mg PO DAILY pantoprazole 40 mg tablet,delayed release (DR/EC) 80 mg PO DAILY hydrocodone-acetaminophen 7.5-325 mg tablet 1 tab PO TID PRN (Reason: pain) buspirone 10 mg tablet 20 mg PO BID Qty: 120 1RF Rx Instructions: Take 2 tablets by mouth every morning and evening olanzapine 7.5 mg tablet 7.5 mg PO .q hs Qty: 30 1RF Rx Instructions: Take one tablet daily at bedtime ibuprofen 800 mg tablet 800 mg PO Q8H PRN (Reason: pain) Qty: 20 0RF Carafate 1 gram tablet 1 g PO TID Qty: 30 0RF ondansetron 4 mg film 4 mg PO Q8H PRN (Reason: nausea and vomiting) Qty: 6 0RF Discharge Orders: Discharge ED (Routine); Ordered 10/27/21 Ordered By: Veronika Rico Referrals: Magalie Acevedo PAPER TESTING SUPERVISOR [Primary Care Provider] - Discharge Diet: Usual diet Discharge Activity: Increase activity as tolerated Patient Instructions: Chest Pain (ED), COVID-19 (Coronavirus Disease 2019) (ED) Activity Restrictions/Additional Instructions: Thank you for visiting the emergency department. You were seen and evaluated for chest pain. The exact cause of your symptoms is unclear though based on evaluation does not need inpatient management at this time. Given your history of abnormal stress test I will message case management for follow-up with cardiology for consideration of further outpatient testing. Please follow-up with your primary care provider. Return to the emergency department for worsening symptoms or anything else that you are concerned about a feel needs emergency evaluation. Coding Level of Care Code ED Staff Research Scientist for Chg Fwd Exam Comprehensive Documented by User: Veronika Rico MD 10/27/21 23:59 HPI - Chest Pain General: Chief Complaint: Chest Pain Stated Complaint: CHEST PAIN Time Seen by Provider: 10/27/21 21:26 [facility] ED PFSH: Medical History Psychiatric care Schizoaffective disorder, bipolar type Social History Smoking and tobacco status: current some day smoker cigarettes Years cigarettes smoked: 30 Quit status (tobacco): considering quitting Second hand smoke exposure: Yes Course Vital Signs: Vital signs: Vital Signs Temperature 97.4 F L 10/27/21 21:29 Pulse Rate 79 10/27/21 21:29 Respiratory Rate 16 10/27/21 21:29 Blood Pressure 117/82 10/27/21 21:29 Pulse Oximetry 97 10/27/21 21:29 Oxygen Delivery Me thod 10/27/21 21:29 MDM - Chest Pain Medical Decision Making Patient presents with chest pain atypical in nature her troponins here are negative it could be due to her COVID she did test positive COVID she is to follow-up PCP and return if worsening. Lab Data : 10/27/21 21:35 10/27/21 21:35 Radiology Impressions Chest X-Ray 10/27/21 21:31 IMPRESSION: No acute findings. Laboratory Results WBC 8.6 10^3/uL (4.0-10.0) 10/27/21 21:35 RBC 5.46 10^6/uL (4.1-5.3) H 10/27/21 21:35 Hgb 10.7 g/dL (11.5-15.3) L 10/27/21 21:35 Hct 36.5 % (37.0-47.0) L 10/27/21 21:35 MCV 66.8 fl (81-99) L 10/27/21 21:35 MCH 19.6 pg (28.0-34.0) L 10/27/21 21:35 MCHC 29.3 g/dL (30.0-36.0) L 10/27/21 21:35 RDW 18.6 % (12.1-15.1) H 10/27/21 21:35 Plt Count 290 10^3/cmm (130-400) 10/27/21 21:35 MPV 14.0 fL (7.4-10.4) H 10/27/21 21:35 Neut % (Auto) 53.4 % 10/27/21 21:35 Lymph % (Auto) 35.0 % 10/27/21 21:35 Will % (Auto) 8.9 % 10/27/21 21:35 Eos % (Auto) 2.0 % 10/27/21 21:35 Baso % (Auto) 0.2 % 10/27/21 21:35 Neut # (Auto) 4.57 10^3/uL (1.8-7.7) 10/27/21 21:35 Lymph # (Auto) 3.0 10^3/uL (0.8-4.8) 10/27/21 21:35 Will # (Auto) 0.8 10^3/uL (0.2-0.9) 10/27/21 21:35 Eos # (Auto) 0.2 10^3/uL (0.0-0.8) 10/27/21 21:35 Baso # (Auto) 0.0 10^3/uL (0.0-0.1) 10/27/21 21:35 Nucleated RBC % (auto) 0 % 10/27/21 21:35 Nucleated RBCs # 0.0 /100WBC 10/27/21 21:35 Sodium 132 mmol/L (136-145) L 10/27/21 21:35 Potassium 4.6 mmol/L (3.5-5.1) 10/27/21 21:35 Chloride 97 mmol/L (98-107) L 10/27/21 21:35 Carbon Dioxide 24 mmol/L (22-29) 10/27/21 21:35 Anion Gap 15.6 (5-19) 10/27/21 21:35 BUN 11 mg/dL (6-20) 10/27/21 21:35 Creatinine 0.7 mg/dL (0.5-0.9) 10/27/21 21:35 GFR Calculation 109.5 mL/min (90-130) 10/27/21 21:35 Glucose 88 mg/dL (65-115) 10/27/21 21:35 Calculated Osmolality 273 mOsm/kg (285-295) L 10/27/21 21:35 Calcium 8.7 mg/dL (8.5-10.5) 10/27/21 21:35 Total Bilirubin 0.2 mg/dL (0.15-1.2) 10/27/21 21:35 AST 13 U/L (0-32) 10/27/21 21:35 ALT 13 U/L (0-33) 10/27/21 21:35 Alkaline Phosphatase 82 U/L (35-105) 10/27/21 21:35 Troponin T Baseline 6 ng/L (0-10) 10/27/21 21:35 Troponin T 120 Minute 6.00 ng/L (0-10) 10/27/21 23:28 Delta Troponin T 0 ABS# (0-10) 10/27/21 23:28 NT-Pro-B Natriuret Pep 7 pg/mL (0-125) 10/27/21 21:35 Total Protein 7.6 g/dL (6.6-8.7) 10/27/21 21:35 Albumin 3.8 g/dL (3.5-5.2) 10/27/21 21:35 Globulin 3.8 g/dL (1.3-4.6) 10/27/21 21:35 Lipase 15 U/L (13-60) 10/27/21 21:35 SARS-CoV-2 Ag (Rapid) Positive (Negative) H 10/27/21 22:03 Discharge Plan Discharge Patient Disposition: Home Clinical Impression: Chest pain, Microcytic anemia, Mild dehydration, COVID-19 Condition: Stable Prescriptions: No Action metformin 500 mg tablet 500 mg PO DAILY aspirin 81 mg tablet,delayed release (DR/EC) 81 mg PO DAILY pantoprazole 40 mg tablet,delayed release (DR/EC) 80 mg PO DAILY hydrocodone-acetaminophen 7.5-325 mg tablet 1 tab PO TID PRN (Reason: pain) buspirone 10 mg tablet 20 mg PO BID Qty: 120 1RF Rx Instructions: Take 2 tablets by mouth every morning and evening olanzapine 7.5 mg tablet 7.5 mg PO .q hs Qty: 30 1RF Rx Instructions: Take one tablet daily at bedtime ibuprofen 800 mg tablet 800 mg PO Q8H PRN (Reason: pain) Qty: 20 0RF Carafate 1 gram tablet 1 g PO TID Qty: 30 0RF ondansetron 4 mg film 4 mg PO Q8H PRN (Reason: nausea and vomiting) Qty: 6 0RF Discharge Orders: Discharge ED (Routine); Ordered 10/27/21 Ordered By: Veronika Rico Referrals: Magalie Acevedo PAPER TESTING SUPERVISOR [Primary Care Provider] - Discharge Diet: Usual diet Discharge Activity: Increase activity as tolerated Patient Instructions: Chest Pain (ED), COVID-19 (Coronavirus Disease 2019) (ED) Activity Restrictions/Additional Instructions: Thank you for visiting the emergency department. You were seen and evaluated for chest pain. The exact cause of your symptoms is unclear though based on evaluation does not need inpatient management at this time. Given your history of abnormal stress test I will message case management for follow-up with cardiology for consideration of further outpatient testing. Please follow-up with your primary care provider. Return to the emergency department for worsening symptoms or anything else that you are concerned about a feel needs emergency evaluation. Coding Level of Care Code ED Staff Research Scientist for Bruce Fwd Exam Comprehensive
[2021-10-27 21:29] VITALS: BP 117/82; PULSE 79; RESP 16; TEMP 36.3; O2SAT 97
--- NOTE | 2021-10-27 21:30 | ECG_ITS ---
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 Measurements Intervals [place] Rate: 90 P: 41 IL: 122 QRS: 59 QRSD: 88 T: 50 QT: 349 QTc: 429 Interpretive Statements SINUS RHYTHM NONSPECIFIC T-WAVE ABNORMALITY Compared to ECG 05/04/2021 01:40:20 Sinus arrhythmia no longer present Short IL interval no longer present T-wave abnormality still present Electronically Signed On 10-28-2021 14:27:49 CDT by Spencer Kate M.D. [email or web address] [id number]
--- NOTE | 2021-10-27 21:31 | XRR_ITS ---
PROCEDURE INFORMATION: Exam: XR Chest Exam date and time: 10/27/2021 9:39 PM Age: 46 years old Clinical indication: Angina; Additional info: Cp TECHNIQUE: Imaging protocol: Radiologic exam of the chest. Views: 1 view. COMPARISON: CR XR chest 1V portable [id number] 05/04/2021 12:41 AM FINDINGS: Lungs: Unremarkable. No consolidation. Pleural spaces: Unremarkable. No pleural effusion. No pneumothorax. Heart/Mediastinum: Unremarkable. No cardiomegaly. Bones/joints: Unremarkable. XR/XR chest 1V portable [id number] IMPRESSION: No acute findings.
[2021-10-27 22:06] LABS: Basophils % 0.2 %; Eosinophils # 0.2 10^3/uL (0.0-0.8); Hematocrit 36.5 % (37.0-47.0); Hemoglobin 10.7 g/dL (11.5-15.3); Mean Corpuscular HGB Conc 29.3 g/dL (30.0-36.0); Mean Corpuscular Hemoglobin 19.6 pg (28.0-34.0); Mean Corpuscular Volume 66.8 fl (81-99); Monocytes # 0.8 10^3/uL (0.2-0.9); Monocytes % 8.9 %; Neutrophils # 4.57 10^3/uL (1.8-7.7); Neutrophils % 53.4 %; Nucleated Red Blood Cells % 0 %; Platelet Count 290 10^3/cmm (130-400); Positive M 1; Red Blood Count 5.46 10^6/uL (4.1-5.3); Red Cell Distribution Width 18.6 % (12.1-15.1); White Blood Count 8.6 10^3/uL (4.0-10.0)
[2021-10-27 22:18] LABS: Troponin(5th) Baseline 6 ng/L (0-10)
[2021-10-27 22:20] LABS: Slide Review Slide Review Perform
[2021-10-27] MEDS: sodium chloride 0.9% 1,000 ML 999 ML IV (22:20)
[2021-10-27 22:27] LABS: Alanine Aminotransferase 13 U/L (0-33); Albumin Level 3.8 g/dL (3.5-5.2); Alkaline Phosphatase 82 U/L (35-105); Anion Gap 15.6 (5-19); Aspartate Amino Transferase 13 U/L (0-32); Blood Urea Nitrogen 11 mg/dL (6-20); Calcium 8.7 mg/dL (8.5-10.5); Carbon Dioxide 24 mmol/L (22-29); Chloride 97 mmol/L (98-107); Creatinine Clr Calc Pharmacy 120.2009; Globulin 3.8 g/dL (1.3-4.6); Glomerular Filtration Rate 109.5 mL/min (90-130); Glucose 88 mg/dL (65-115); Lipase 15 U/L (13-60); NT Pro B Type Natriuretic Pept 7 pg/mL (0-125); Osmolality Calculated 273 mOsm/kg (285-295); Potassium 4.6 mmol/L (3.5-5.1); Sodium 132 mmol/L (136-145); Total Bilirubin 0.2 mg/dL (0.15-1.2); Total Protein 7.6 g/dL (6.6-8.7)
[2021-10-27 22:29] LABS: SARS Covid-2 Antigen Positive (Negative)
[2021-10-27] MEDS: ketorolac 30 mg/mL INJ 15 MG IVP (23:03)
[2021-10-27] MEDS: acetaminophen 500 mg Tablet 1000 MG PO (23:03)
[2021-10-27 23:56] LABS: Troponin 5 2HR Delta 0 ABS# (0-10)
--- NOTE | 2021-10-28 16:44 | DCPLANNER ---
Addendum entered by Zakiya Hamlin 02/07/22 15:50: patient did attend appointment at [facility]. Addendum entered by Zakiya Hamlin 11/01/21 16:23: Patient has a follow up appointment scheduled for Sunday, November 23, 2021 at 3:[address] Rodríguez at [facility]. Clinic will call patient with appointment information. Original Note: family manager had message to schedule a follow up appointment for patient with cardiology. family manager sent patients information to the front office staff at [facility]. Patients information will be printed and reviewed. Clinic will call patient with appointment information.
== END 2021-10-28 00:09 | disposition home or self-care (01) ==
PROVIDERS: Emergency Medicine; Emergency Provider Emergency Medicine; PCP Nurse Practitioner Family
DX: U07.1 COVID-19 (principal); R07.9 Chest pain, unspecified; D50.9 Iron deficiency anemia, unspecified; E86.0 Dehydration; Z79.82 Long term (current) use of aspirin; F17.210 Nicotine dependence, cigarettes, uncomplicated; J06.9 Acute upper respiratory infection, unspecified; R11.0 Nausea; Z20.822 Contact with and (suspected) exposure to COVID-19; F41.9 Anxiety disorder, unspecified
CPT/HCPCS: 71045; 80053; 83690; 83880; 84484; 85025; 87426; 93005; 96374; 99283; 99285; J1885; J7030

== ENCOUNTER → 2021-11-15 11:29 | Outpatient (BNVA) | payer MEDICARE, MEDICAID, OTHER, SELFPAY | PROVIDERS: PCP Nurse Practitioner Family; Visit Provider Nurse Practitioner Psychiatric/Mental Health | DX: Z79.899 Other long term (current) drug therapy (principal); F25.0 Schizoaffective disorder, bipolar type | CPT/HCPCS: 80061; 83036 ==

== ENCOUNTER → 2021-11-23 12:57 | Outpatient (BNVA) | payer MEDICARE, MEDICAID, SELFPAY | PROVIDERS: PCP Nurse Practitioner Family; Visit Provider Internal Medicine Cardiovascular Disease | DX: R07.89 Other chest pain (principal); I10 Essential (primary) hypertension; E11.9 Type 2 diabetes mellitus without complications; Z79.84 Long term (current) use of oral hypoglycemic drugs; R00.2 Palpitations; F25.0 Schizoaffective disorder, bipolar type; F17.210 Nicotine dependence, cigarettes, uncomplicated | CPT/HCPCS: 99204 ==

== ENCOUNTER → 2022-04-04 13:58 | Outpatient (BNVA) | payer MEDICARE, MEDICAID, SELFPAY | PROVIDERS: PCP Nurse Practitioner Family; Visit Provider Nurse Practitioner Family | DX: I10 Essential (primary) hypertension (principal); R00.2 Palpitations; F17.210 Nicotine dependence, cigarettes, uncomplicated | CPT/HCPCS: 99214 ==

== ENCOUNTER 2022-04-22 07:25 | Emergency (ER) | payer MEDICARE, MEDICAID, SELFPAY ==
[2022-04-22 07:26] VITALS: BP 145/89; PULSE 71; RESP 16; TEMP 36.6; O2SAT 100; BMI 38.2
--- NOTE | 2022-04-22 07:28 | XRR_ITS ---
PROCEDURE INFORMATION: Exam: XR Left Foot Exam date and time: 04/22/2022 7:39 AM Age: 46 years old Clinical indication: Injury or trauma; Other: Stepped on some glass; Laceration; Foot; Left; Foreign body involvement not specified TECHNIQUE: Imaging protocol: Radiologic exam of the left foot. Views: 3 or more views. COMPARISON: No relevant prior studies available. FINDINGS: Bones/joints: No acute fracture or malalignment. Mild 1st MTP joint degenerative changes. Soft tissues: No radiopaque foreign bodies are identified. XR/XR foot LT min 3V* [id number] IMPRESSION: 1. No acute fracture or malalignment. 2. No radiopaque foreign bodies are identified.
--- NOTE | 2022-04-22 07:45 | W.ED.EXTPRO ---
HPI - Extremity Problem General: Chief complaint: Extremity Injury, Lower Stated complaint: LEFT FOOT PAIN STEPPED ON GLASS Time Seen by Provider: 04/22/22 07:28 History of Present Illness: Patient is a 46-year-old female comes to the ED with left foot pain. Yesterday patient stepped on a piece of broken glass. Patient states she cleaned cut with hydrogen peroxide yesterday. She rates the pain currently a 9 out of 10. Ambulating on the right foot causes worsening pain. Bleeding was controlled. Associated symptoms: Deny chest pain, fever(s) or rash Review of Systems Const: Denies: fever(s), chills or fatigue Eyes: Denies: change in vision or eye discomfort ENMT: Denies: throat pain, odynophagia, nasal discharge or nasal congestion Card: Denies: chest pain, palpitations, edema, swelling of feet/ankles, dyspnea on exertion or orthopnea Resp: Denies: dyspnea, productive cough or non-productive cough GI: Denies: abdominal pain, nausea, vomiting, diarrhea, constipation or hematochezia : Denies: flank pain, dysuria or hematuria Musc: Reports: extremity pain (Left foot pain-cut by glass on heel of foot); Denies: neck pain, back pain or extremity swelling Skin/Breast: Denies: rash or new lesions Neuro: Denies: headache(s), numbness in extremities or weakness in extremities PFS ED PFSH: Medical History (Updated 04/22/22 @ 08:31 by TASIA Garcia) Former smoker No pertinent family history Psychiatric care Schizoaffective disorder, bipolar type Social History Smoking and tobacco status: current every day smoker cigarettes Packs smoked per day: 0.10 Years cigarettes smoked: 28 Quit status (tobacco): considering quitting Second hand smoke exposure: No Smoking risk assessment/counseling performed?: No Alcohol intake: never Desire information about alcohol rehabilitation?: No Counseling given: No Desire information about substance/drug rehabilitation?: No Counseling given: No Physical Exam Const: COMMON NORMALS: no acute distress, patient oriented x3 and alert GENERAL APPEARANCE: cooperative and comfortable HENMT: COMMON NORMALS: normocephalic HEAD & SCALP: normocephalic MOUTH: Normal oral and palatal mucosa present THROAT: posterior oropharynx normal and uvula midline Neck/C-Spine: COMMON NORMALS: supple GENERAL: Yes normal visual inspection Resp: COMMON NORMALS: normal respiratory effort, No retractions, No use of accessory muscles and clear to auscultation bilaterally AUSCULTATION: clear to auscultation bilaterally Cardio: COMMON NORMALS: regular rate, regular rhythm, S1 normal heart sound present, S2 normal heart sound present, No gallops present (Cardio), No clicks present (Cardio), No murmurs present (Cardio) and Peripheral pulses 2+ throughout RATE: regular rate RHYTHM: regular rhythm HEART SOUNDS: S1 normal heart sound present and S2 normal heart sound present PERIPHERAL PULSES: Peripheral pulses 2+ throughout GI: COMMON NORMALS: Normal to inspection, nondistended, normoactive bowel sounds present, Soft to palpation, non-tender and no masses PALPATION: Yes Soft to palpation : COMMON NORMALS: Yes no CVA tenderness BLADDER/KIDNEY EXAM: Yes no CVA tenderness Back/Pelvis: COMMON NORMALS: no CVA tenderness Extremity: NARRATIVE EXTREMITY EXAM: Left foot?heel small superficial cut with no active bleeding noted. Cut on heel was tender to the touch. Wound is already begun healing process and no need for sutures. No erythema, warmth or purulent drainage noted. No foreign body seen. Neuro: COMMON NORMALS: patient oriented x3 SENSORIUM/ORIENTATION: Yes alert GAIT: Yes Normal gait present Skin: GENERAL SKIN EXAM: dry skin Course Vital Signs: Vital signs: Vital Signs Temperature 97.8 F 04/22/22 07:26 Pulse Rate 71 04/22/22 07:26 Respiratory Rate 16 04/22/22 07:26 Blood Pressure 145/89 04/22/22 07:26 Pulse Oximetry 100 04/22/22 07:26 Oxygen Delivery Me thod 04/22/22 07:26 MDM - Extremity (Nontraumatic) Medical Decision Making Patient is a 46-year-old female comes to the ED with left foot pain after stepping on some glass yesterday. Vitals are stable. patient appears in no acute pain or distress. Left foot?heel small superficial cut with no active bleeding noted. Cut on heel was tender to the touch. Wound is already begun healing process and no need for sutures. No erythema, warmth or purulent drainage noted or any other signs of cellulitis. No foreign body seen. Foot x-ray shows no acute fractures or radiopaque foreign body seen. Nurse irrigated with normal saline and applied triple antibiotic and bandage. She was given updated tetanus today. Patient was diagnosed with a consult foot and was discharged home with some crutches and a prophylactic prescription of Keflex. She was told to follow-up with her PCP within the next week for reevaluation. Return to ED precautions given. Patient understood and agreed with plan. Lab Data Radiology Impressions Foot X-Ray 04/22/22 07:28 IMPRESSION: 1. No acute fracture or malalignment. 2. No radiopaque foreign bodies are identified. Discharge Plan Discharge Patient Disposition: Home Clinical Impression: Cut of sole of foot Condition: Stable Prescriptions: New cephalexin 500 mg capsule 500 mg PO Q6H 4 Days Qty: 16 0RF No Action aspirin 81 mg tablet,delayed release (DR/EC) 81 mg PO DAILY pantoprazole 40 mg tablet,delayed release (DR/EC) 40 mg PO DAILY hydrocodone-acetaminophen 7.5-325 mg tablet 1 tab PO TID PRN (Reason: pain) triamcinolone acetonide 0.1 % cream 1 applic topical DAILY PRN buspirone 10 mg tablet 20 mg PO BID Qty: 120 2RF Rx Instructions: Take 2 tablets by mouth every morning and evening olanzapine 7.5 mg tablet 7.5 mg PO .q hs Qty: 30 2RF Rx Instructions: Take one tablet daily at bedtime Discharge Orders: Discharge ED (Routine); Ordered 04/22/22 Ordered By: Richard Cazares Referrals: Magalie Acevedo FNP [Referring] - Discharge Diet: Regular Discharge Activity: Use walker/crutches as instructed Activity Restrictions/Additional Instructions: Follow-up with medical provider as directed in the next 5 to 7 days for reevaluation. Take antibiotic as prescribed. clean Daily with soap and water and apply thin layer of triple antibiotic ointment and cover with bandage. Use crutches for the next 2 to 3 days and limit weightbearing to help with pain and ambulation. Return to the ER or your medical provider if condition worsens. Please read and understand discharge instructions. Thank you for choosing [facility] for your healthcare needs today. Please realize this is an emergency room and that we are providing you with a medical screening exam and this may not be complete and all inclusive of all the testing and or work up that you may need to determine your ailment or severity of your illness. It is very important that you follow up as instructed or that you return to the Emergency Department should you have concerns or if your condition changes or worsens in any way. Coding Level of Care Code ED Cash Applications Coordinator for Bruce Davis
[2022-04-22] MEDS: tetanus-dipt-pertussis 0.5 mL SDV IM (08:30)
[2022-04-22] MEDS: HYDROcodone-acetaminophen 5-325 mg Tablet 1 TAB PO (08:30)
[2022-04-22] MEDS: neomycin-poly-bacitracin oint 28 gm 1 APPLIC TOPICAL (08:30)
--- NOTE | 2022-04-22 08:35 | PC.NURSE ---
Pt given crutchs and shown how to use them she verbilized she understood
[2022-04-22 08:41] VITALS: BP 132/74; PULSE 75; RESP 18; O2SAT 98
== END 2022-04-22 08:44 | disposition home or self-care (01) ==
PROVIDERS: Emergency Provider Physician Assistant; PCP Family Medicine
DX: S91.312A Laceration without foreign body, left foot, initial encounter (principal); W25.XXXA Contact with sharp glass, initial encounter; Z23 Encounter for immunization
CPT/HCPCS: 73630; 90471; 90715; 99283; E0114

== ENCOUNTER → 2022-05-09 08:52 | Outpatient (BNVA) | payer MEDICARE, MEDICAID, SELFPAY | PROVIDERS: PCP Family Medicine; Visit Provider Family Medicine | DX: D50.9 Iron deficiency anemia, unspecified (principal); F25.0 Schizoaffective disorder, bipolar type; I10 Essential (primary) hypertension; K21.9 Gastro-esophageal reflux disease without esophagitis; Z76.89 Persons encountering health services in other specified circumstances; U07.1 COVID-19; E11.9 Type 2 diabetes mellitus without complications; R13.10 Dysphagia, unspecified | CPT/HCPCS: 80053; 80061; 81000; 82728; 83036; 83550; 84443; 84466; 85025; 86803; 87806 ==

== ENCOUNTER 2022-06-21 09:42 | Outpatient (CLI) | payer OTHER, MEDICAID, SELFPAY ==
--- NOTE | 2022-06-21 09:52 | XR_ITS ---
WS: [id number] XR cervical spine 3V* [id number] REASON FOR EXAM: UE NUMBNESS, SHOULDER PAIN FINDINGS: Straightening of the normal lordosis of the cervical spine. Mild narrowing of the intervertebral disc spaces C3-C7. Moderate anterior and uncinate osteophytosis C3-C7. Facet joints intact with normal alignment. 2.5 mm of anterolisthesis of C3 on C4 and C4 on C5. XR/XR cervical spine 3V* [id number] IMPRESSION: Degenerative spondylosis as above.
== END 2022-06-21 09:43 | disposition home or self-care (01) ==
PROVIDERS: PCP Family Medicine; Visit Provider Family Medicine
DX: M47.892 Other spondylosis, cervical region (principal); M54.2 Cervicalgia; R20.0 Anesthesia of skin
CPT/HCPCS: 72040

== ENCOUNTER 2022-06-21 10:27 | Emergency (ER) | payer MEDICARE, MEDICAID, SELFPAY ==
[2022-06-21 11:15] VITALS: BP 149/90; PULSE 82; TEMP 36.7; O2SAT 100; BMI 41.5
--- NOTE | 2022-06-21 11:39 | ED_ITS ---
HPI - Dental/Oral General: Chief complaint: Dental/Oral Stated complaint: tooth pain/swelling Time Seen by Provider: 06/21/22 11:21 Source: patient Mode of arrival: ambulatory Limitations: no limitations History of Present Illness: Patient is a 46-year-old female presents to ED today with a complaint of dental pain to her left lower molars. She states yesterday her face was swollen but this seems to be better today. She states she has contacted multiple dentists but the soonest they can get her in is December. MD Complaint: tooth pain Teeth map: 1. Onset (ago): day(s) Duration: constant Severity: moderate Relieving factors: nothing Exacerbating factors: chewing Context: history of dental caries and poor dental care Associated symptoms: Reports no associated symptoms; Denies fever(s) or odynophagia Treatment prior to arrival: none Review of Systems Const: Denies: fever(s), chills, body aches, fatigue or malaise ENMT: Reports: dental pain; Denies: throat pain, uvular edema, enlarged tonsils, odynophagia, hoarseness, mouth pain, swelling of lips/tongue or oral sores Card: Denies: chest pain Resp: Denies: dyspnea GI: Denies: nausea or vomiting Musc: Denies: neck pain Skin/Breast: Denies: rash Neuro: Denies: headache(s) PFSH ED PFSH: Medical History Former smoker No pertinent family history Psychiatric care Schizoaffective disorder, bipolar type Family History Mother CAD (coronary artery disease) Cancer Brain Diabetes Father Hypertension CAD (coronary artery disease) Denies family history of Dementia Hyperlipidemia Psychiatric illness Chronic kidney disease (CKD) Suicide Anesthesia complication Family history of premature coronary artery disease Lung disease Stroke Social History Smoking and tobacco status: current every day smoker cigarettes Packs smoked per day: 0.10 Years cigarettes smoked: 28 Quit status (tobacco): considering quitting Second hand smoke exposure: No Smoking risk assessment/counseling performed?: No Alcohol intake: never Desire information about alcohol rehabilitation?: No Counseling given: No Substance/Drug Use: never Desire information about substance/drug rehabilitation?: No Counseling given: No Adopted: No Caregiver/support person: No Lives independently: Yes Marital status: Single Number of children: 2 service: No Current occupational status: disabled Sexually active: Yes Do you think of yourself as: Straight/Heterosexual Current gender identity: Female Physical Exam Const: COMMON NORMALS: no acute distress, patient oriented x3, no limitations and alert GENERAL APPEARANCE: cooperative NUTRITIONAL APPEARANCE: obese ORIENTATION/CONSCIOUSNESS: Yes awake, Yes oriented to person, Yes oriented to place and Yes oriented to time HENMT: FACE & SINUS: normal facial exam, sinuses nontender and face symmetric; no sinus tenderness, no erythema, no edema and no fluctuance MOUTH: Normal oral and palatal mucosa present, lip normal and tongue normal TEETH & GINGIVA: Yes caries and Yes poor dentition TEETH & GINGIVA IMAGES: 1. Severely decayed molars THROAT: no uvular edema Eye: GENERAL EYE: appearance normal, both eyes and all related structures Neck/C-Spine: COMMON NORMALS: no lymphadenopathy GENERAL: Yes normal visual inspection, No anterior neck swelling and No submandibular swelling Resp: COMMON NORMALS: normal respiratory effort Cardio: COMMON NORMALS: regular rate and regular rhythm RATE: regular rate RHYTHM: regular rhythm Neuro: COMMON NORMALS: patient oriented x3 and CN's II-XII intact bilaterally SENSORIUM/ORIENTATION: Yes alert, Yes oriented to person, Yes oriented to place and Yes oriented to time Course Vital Signs: Vital signs: Vital Signs Temperature 98.0 F 06/21/22 11:15 Pulse Rate 82 06/21/22 11:15 Blood Pressure 149/90 06/21/22 11:15 Pulse Oximetry 100 06/21/22 11:15 Oxygen Delivery Me thod Room Air 06/21/22 11:15 MDM - Dental/Oral Medical Decision Making Patient will be placed on oral antibiotics. She was given dental resources for dental follow-up. Return ED precautions given. Discharge Plan Discharge Patient Disposition: Home Clinical Impression: Pain, dental, Dental infection Condition: Stable Prescriptions: New penicillin V potassium 500 mg tablet 500 mg PO Q8H 7 Days Qty: 21 0RF No Action aspirin 81 mg tablet,delayed release (DR/EC) 81 mg PO DAILY fexofenadine [Michelle Allergy] 180 mg tablet 180 mg PO DAILY Qty: 30 2RF fluticasone propionate [Flonase Allergy Relief] 50 mcg/actuation spray,suspension 1 spray intranasal BID Qty: 16 1RF Rx Instructions: administer into each nostril hydrocodone-acetaminophen 7.5-325 mg tablet 1 tab PO TID PRN (Reason: pain) triamcinolone acetonide 0.1 % cream 1 applic topical DAILY PRN olanzapine 7.5 mg tablet 7.5 mg PO .q hs Qty: 30 2RF Rx Instructions: Take one tablet daily at bedtime buspirone 10 mg tablet 20 mg PO BID Qty: 120 2RF Rx Instructions: Take 2 tablets by mouth every morning and evening norgestimate-ethinyl estradiol [[place]-Linyah] 0.25-35 mg-mcg tablet 1 tab PO DAILY pantoprazole 40 mg tablet,delayed release (DR/EC) 40 mg PO BID Qty: 60 3RF ascorbic acid (vitamin C) 500 mg tablet 500 mg PO DAILY Qty: 30 5RF ferrous sulfate [Paulina-Time] 325 mg (65 mg iron) tablet 325 mg PO DAILY Qty: 30 5RF Discharge Orders: Discharge ED (Routine); Ordered 06/21/22 Ordered By: Katelynn Encarnacion Referrals: Heriberto Dalton DO [Primary Care Provider] - Patient Instructions: Dental Abscess (ED), Toothache (ED) Coding Level of Care Code ED Automotive Engineering Technician for Bruec Davis
== END 2022-06-21 13:20 | disposition home or self-care (01) ==
PROVIDERS: Emergency Provider Physician Assistant; PCP Family Medicine
DX: K04.7 Periapical abscess without sinus (principal); Z79.82 Long term (current) use of aspirin; F17.210 Nicotine dependence, cigarettes, uncomplicated
CPT/HCPCS: 99283

== ENCOUNTER 2022-06-30 22:05 | Emergency (ER) | payer MEDICARE, MEDICAID, SELFPAY ==
[2022-06-30 22:25] VITALS: BP 141/92; PULSE 85; RESP 16; TEMP 36.7; O2SAT 100; BMI 40.7
[2022-06-30] MEDS: metoclopramide 5 mg/mL SDV 2 mL 10 MG IVP (23:57)
[2022-07-01] MEDS: dexamethasone 4 mg/mL INJ 8 MG IVP
[2022-07-01] MEDS: ketorolac 30 mg/mL INJ 15 MG IVP (00:05)
[2022-07-01] MEDS: HYDROmorphone 1 mg/mL INJ 1 mL 0.5 MG IVP (00:05)
[2022-07-01 00:07] VITALS: BP 117/75; PULSE 76; RESP 16; O2SAT 97
--- NOTE | 2022-07-01 00:42 | W.ED.HA ---
HPI - Headache General: Chief Complaint: Headache Stated Complaint: headache, dental pain Time Seen by Provider: 06/30/22 22:33 Source: patient History of Present Illness: 47-year-old female treated for a dental infection several days ago. She states that she finished her antibiotics, but tooth pain never fully went away. She complains of a headache for the past day or so. Worse on the left side of her head where her dental infection has been. She does have a history of migraines chronically. She denies neurological symptoms such as change in vision, weakness, trouble with language or speech, etc. She denies fever. No vomiting. MD elicited complaint: headache and migraine Pertinent past history: migraines Onset (ago): hour(s) Onset description: gradually Location: left, temporal and facial Quality & Timing: aching and throbbing Associated symptoms: Deny chest pain, cough, fever(s), loss of vision, nausea, neck stiffness, syncope, vomiting or weakness Treatments prior to arrival: acetaminophen Review of Systems Const: Denies: fever(s) ENMT: Denies: throat pain Card: Denies: chest pain or syncope Resp: Denies: dyspnea GI: Denies: abdominal pain, nausea or vomiting Musc: Denies: neck pain PFSH ED PFSH: Medical History Former smoker No pertinent family history Psychiatric care Schizoaffective disorder, bipolar type Family History Mother CAD (coronary artery disease) Cancer Brain Diabetes Father Hypertension CAD (coronary artery disease) Denies family history of Dementia Hyperlipidemia Psychiatric illness Chronic kidney disease (CKD) Suicide Anesthesia complication Family history of premature coronary artery disease Lung disease Stroke Social History Smoking and tobacco status: current every day smoker cigarettes Packs smoked per day: 0.10 Years cigarettes smoked: 28 Quit status (tobacco): considering quitting Second hand smoke exposure: No Smoking risk assessment/counseling performed?: No Alcohol intake: never Desire information about alcohol rehabilitation?: No Counseling given: No Substance/Drug Use: never Desire information about substance/drug rehabilitation?: No Counseling given: No Adopted: No Caregiver/support person: No Lives independently: Yes Marital status: Single Number of children: 2 service: No Current occupational status: disabled Sexually active: Yes Do you think of yourself as: Straight/Heterosexual Current gender identity: Female Physical Exam Const: COMMON NORMALS: no acute distress GENERAL APPEARANCE: cooperative; not ill appearing and not frail appearing HENMT: COMMON NORMALS: normocephalic, atraumatic and Normal external nose present HEAD & SCALP: normocephalic and atraumatic FACE & SINUS: normal facial exam and face symmetric NOSE: Normal external nose present TEETH & GINGIVA IMAGES: 1. THROAT: posterior oropharynx normal Eye: COMMON NORMALS: Equal, round and reactive pupils present and EOMs intact bilaterally PUPIL: Yes Equal, round and reactive pupils present Neck/C-Spine: GENERAL: Yes trachea midline Chest: CHEST: Yes Symmetrical chest wall rise Resp: COMMON NORMALS: normal respiratory effort, No retractions, No use of accessory muscles and clear to auscultation bilaterally AUSCULTATION: clear to auscultation bilaterally Cardio: COMMON NORMALS: regular rate and regular rhythm RATE: regular rate RHYTHM: regular rhythm GI: COMMON NORMALS: Normal to inspection, nondistended, normoactive bowel sounds present Extremity: COMMON NORMALS: no pedal edema Neuro: ROBINA COMA SCALE: document GCS findings [place] coma scale eye opening: Spontaneous Robina coma scale verbal response: Orientated [place] coma scale motor response: Obey commands [place] coma scale total score: 15 SENSORY EXAM: Yes extremities (intact) Psych: COMMON NORMALS: speech normal SPEECH: Yes normal speech Skin: COMMON NORMALS: no rashes or lesions noted GENERAL SKIN EXAM: no rashes or lesions noted Course Vital Signs: Vital signs: Vital Signs Temperature 98.0 F 06/30/22 22:25 Pulse Rate 76 07/01/22 00:07 Respiratory Rate 16 07/01/22 00:07 Blood Pressure 117/75 07/01/22 00:07 Pulse Oximetry 97 07/01/22 00:07 Oxygen Delivery Me thod Room Air 07/01/22 00:07 MDM - Headache Medical Decision Making 47-year-old female with failed treatment of a dental infection with penicillin VK. No signs of toxicity or sepsis. She does have a headache, appears to be a migraine triggered by the tooth ache. Headache is improved following administration of medication here. She will be placed on clindamycin. She was given a dose of dexamethasone for the swelling and dental infection related inflammation. She has a dentist appointment on 07/11. Discharge Plan Discharge Patient Disposition: Home Clinical Impression: Dental infection Condition: Stable Prescriptions: New clindamycin HCl 300 mg capsule 300 mg PO Q6H 10 Days Qty: 40 0RF ketorolac 10 mg tablet 10 mg PO TID PRN (Reason: pain) Qty: 10 0RF Continued hydrocodone-acetaminophen 7.5-325 mg tablet 1 tab PO TID PRN (Reason: pain) Qty: 7 0RF No Action aspirin 81 mg tablet,delayed release (DR/EC) 81 mg PO DAILY fexofenadine [Michelle Allergy] 180 mg tablet 180 mg PO DAILY Qty: 30 2RF fluticasone propionate [Flonase Allergy Relief] 50 mcg/actuation spray,suspension 1 spray intranasal BID Qty: 16 1RF Rx Instructions: administer into each nostril triamcinolone acetonide 0.1 % cream 1 applic topical DAILY PRN olanzapine 7.5 mg tablet 7.5 mg PO .q hs Qty: 30 2RF Rx Instructions: Take one tablet daily at bedtime buspirone 10 mg tablet 20 mg PO BID Qty: 120 2RF Rx Instructions: Take 2 tablets by mouth every morning and evening norgestimate-ethinyl estradiol [[place]-Linyah] 0.25-35 mg-mcg tablet 1 tab PO DAILY pantoprazole 40 mg tablet,delayed release (DR/EC) 40 mg PO BID Qty: 60 3RF ascorbic acid (vitamin C) 500 mg tablet 500 mg PO DAILY Qty: 30 5RF ferrous sulfate [Paulina-Time] 325 mg (65 mg iron) tablet 325 mg PO DAILY Qty: 30 5RF Discharge Orders: Discharge ED (Routine); Ordered 07/01/22 Ordered By: Tio Stanley Referrals: Heriberto Dalton DO [Primary Care Provider] - 4-7 days Patient Instructions: Dental Abscess (ED), Opioid Safety, Pain Management Coding Level of Care Code ED Supervisor Lace Tearing for Bruce Davis
[2022-07-01] MEDS: clindamycin 150 mg Capsule 300 MG PO (01:27)
[2022-07-01 01:33] VITALS: BP 127/79; PULSE 99; RESP 18; O2SAT 97
== END 2022-07-01 01:30 | disposition home or self-care (01) ==
PROVIDERS: Emergency Provider Emergency Medicine; PCP Family Medicine
DX: K04.7 Periapical abscess without sinus (principal); Z79.82 Long term (current) use of aspirin; F17.210 Nicotine dependence, cigarettes, uncomplicated
CPT/HCPCS: 96374; 96375; 99284; J1100; J1170; J1885; J2765

== ENCOUNTER 2022-07-25 08:31 | Outpatient (CLI) | payer MEDICARE, MEDICAID, SELFPAY ==
--- NOTE | 2022-07-25 08:44 | MM_ITS ---
WS: [id number] BILATERAL 3D TOMOSYNTHESIS DIGITAL SCREENING MAMMOGRAPHY WITH CAD CLINICAL INFORMATION: SCREENING HISTORY: Screening mammogram. No current complaints. COMPARISON: 2021 TECHNIQUE: Bilateral CC and MLO views. FINDINGS: The breasts are composed of heterogeneous fibroglandular density tissue, which can limit the detectio n of small underlying mass lesions. No suspicious mass, asymmetry, calcifications, or architectural d istortion. No evidence of malignancy. Incidental punctate calcifications. MM/[place] [id number] IMPRESSION: BI-RADS: 2-Benign FOLLOW UP: 1 Year Follow-up Recommend return to annual screening mammography.
== END 2022-07-25 08:32 | disposition home or self-care (01) ==
PROVIDERS: PCP Family Medicine; Visit Provider Family Medicine
DX: Z12.31 Encounter for screening mammogram for malignant neoplasm of breast (principal)
CPT/HCPCS: 77063; 77067